=== PATIENT | male | born 1975 | race Caucasian/White ===

== ENCOUNTER 2019-04-03 07:48 | Emergency (ER) | payer SELFPAY ==
--- NOTE | 2019-04-03 08:46 | RAD ---
XR Chest Pa Lat STANDARD HISTORY: Cough, congestion, fever COMPARISON: 06/19/2014 FINDINGS: The heart size is normal. The lungs are well expanded without focal areas of consolidation, pneumothorax or pleural effusions. IMPRESSION: No radiographic evidence of acute cardiopulmonary process.
[2019-04-03] MEDS ORDERED: Ibuprofen 800 MG TAB ONE (09:24)
== END 2019-04-03 09:50 | disposition home or self-care (01) ==
LOC: ERS 07:48
DX: J06.9 Acute upper respiratory infection, unspecified (principal); Z87.891 Personal history of nicotine dependence
CPT/HCPCS: 71046; 87804

== ENCOUNTER 2019-10-01 10:22 | Observation (INO) | payer OTHER, SELFPAY ==
--- NOTE | 2019-10-01 11:26 | RAD ---
CHEST 2 VIEWS: Date: 10/01/2019 HISTORY: Cough and fever. COMPARISON: Radiograph dated 04/03/2019. FINDINGS: There are innumerable nodules throughout the lungs. No pneumothorax. No significant effusion. No acut e osseous abnormality is appreciated. IMPRESSION: Innumerable nodules throughout the lungs concerning for metastatic disease. Septic emboli is also a p ossibility. CT of the chest may be beneficial if clinically warranted. POS: [facility]
[2019-10-01] MEDS ORDERED: Iopamidol-370 76% 500 ML 1 ML ONE (11:39)
[2019-10-01] MEDS ORDERED: Ondansetron ODT 4 MG TAB ONE (11:43)
[2019-10-01 12:14] LABS: #Basophils 0.1 thou/uL (0.0-0.2); #Eosinphils 1.3 thou/uL (0.0-0.7); #Lymphocytes 1.7 thou/uL (1.20-3.40); #Monocytes 0.9 thou/uL (0.11-0.59); #Neutrophils 7.1 thou/uL (1.40-6.50); %Basophils 0.9 % (0.0-1.0); %Eosinophils 11.7 % (0.0-10.0); %Monocytes 7.9 % (0.0-10.0); %Neutrophils 64.5 % (42.0-75.0); Hemoglobin 13.8 g/dL (14.0-18.0); Mean Corpuscular HGB CONC 32.9 g/dL (32.0-36.0); Mean Corpuscular Hemoglobin 32.9 pg (27.0-31.0); Mean Platelet Volume 6.2 fL (7.4-10.4); Platelet Count 543 thou/uL (130-400); RBC Distribution Width 11.9 % (11.5-14.5)
[2019-10-01 12:45] LABS: ALT (SGPT) 35 U/L (8-55); AST (SGOT) 28 U/L (5-34); Albumin 3.8 g/dL (3.5-5.0); Alkaline Phosphatase 91 U/L (40-110); Anion Gap 14 mmol/L (10-20); BUN (Urea Nitrogen) 8 mg/dL (8.9-20.6); Bilirubin, Total 0.8 mg/dL (0.2-1.2); Calc. Creatinine Clearance 0 mL/min (70-130); Calcium 9.6 mg/dL (7.8-10.44); Carbon Dioxide 27 mmol/L (22-29); Chloride 101 mmol/L (98-107); Estimated GFR-MDRD Greater than 90; Globulin 4.5 g/dL (2.4-3.5); Glucose 106 mg/dL (70-105); Potassium 4.2 mmol/L (3.5-5.1); Protein, Total 8.3 g/dL (6.0-8.3); Sodium 138 mmol/L (136-145)
--- NOTE | 2019-10-01 13:07 | CT ---
CT CHEST WITH IV CONTRAST: Date: 10-01-2019 Provided Clinical History: Cough and fever, abnormal chest radiograph. FINDINGS: There are innumerable bilateral pulmonary nodules present diffusely. There are bilateral pleural base d masses present. There is bilateral mild pleural fluid. There is lymph node enlargement in a right p aratracheal location in the region of the thoracic inlet. At the right lung apex are several circumsc ribed oval masses, the largest of which measures approximately 3.6 cm in transverse dimension, 2.9 cm in AP dimension, and 2.7 cm in craniocaudal dimension. This may reflect a pleural based mass or enla rged lymph node. The heart, pericardium and great vessels demonstrate an unremarkable CT appearance. Calcified lymph n odes are seen involving the mediastinum and right hilar regions. The airway appears patent and of normal caliber. There is no evidence for a pneumothorax. There is a large heterogeneous enhancing solid mass involving the superior pole of the left kidney, e xtending exophytically to become inseparable from the left adrenal gland. This measures at least 9.7 x 6.2 cm in greatest transverse dimensions and at least 8.9 cm in craniocaudal dimension. There is th rombus within the left renal vein, likely tumor thrombus. There are partially visualized enlarged ret roperitoneal lymph nodes. The osseous structures demonstrate no concerning lytic or blastic lesions. There is a potential parti ally visualized mass involving the inferior aspect of the right hepatic lobe measuring at least 2.2 c m. IMPRESSION: 1. Left renal malignancy with involvement of the left adrenal gland, tumor thrombus within the left r enal vein extending into the subhepatic IVC and thoracic metastatic disease as described. 2. Bilateral pleural fluid, presumably submalignant. 3. Partially visualized right upper quadrant mass is suspected. Dedicated abdominal imaging is recomm ended on a non-emergent basis. POS: [facility]
--- NOTE | 2019-10-01 15:18 | HP ---
PRIMARY CARE PHYSICIAN: The patient does not have a primary care physician. CHIEF COMPLAINT: Cough for a week. HISTORY OF PRESENT ILLNESS: Mr. Austin is a pleasant 44-year-old gentleman, who says that he has been having a cough off and on for the last week, possibly even 2 weeks and then over the last couple of days, he started noticing a fever off and on. He says that last night he basically coughed all night long. He denies any hemoptysis though, but he says he notices it more when he is overheated. He also notes that his "body was hurting all over" and he felt tired. He also had some nausea. He also says that he has been a bit short of breath as well and as a result, he came to the ER for evaluation. In the ER, he had a CT scan of the chest done, which was noted to have a large mass in the superior pole of the left kidney. He also was noted to have a possible renal vein tumor or thrombus and also a mass in the inferior aspect of the right hepatic lobe. There are also innumerable scattered nodules throughout the lungs. Since the patient has no insurance and no primary care physician, it was felt best to go ahead and admit him to help facilitate his evaluation. The patient denies any diarrhea, however, he says he has had some weight loss, but this was intentional. He says he has been working hard to try to lose weight. He has been running and walking in order to try to do this and he denies any headache. No dizziness. No sore throat. Otherwise, no other complaints. REVIEW OF SYSTEMS: All systems were reviewed and are negative except for that mentioned in the History of Present Illness. PAST MEDICAL HISTORY: Negative. PAST SURGICAL HISTORY: He had a left foot repair and bilateral eye surgery when he was a child. ALLERGIES: NO KNOWN DRUG ALLERGIES. SOCIAL HISTORY: He is single. He has one son. He smokes about half a pack of cigarettes a day for the past 5 years and he also drinks 1 to 2 beers a day. FAMILY HISTORY: History of hypertension, diabetes, and he said his mother had lung cancer, but she was a smoker. CURRENT MEDICATIONS: None. PHYSICAL EXAMINATION: GENERAL: He is alert and oriented. He appears to be in no acute distress. VITAL SIGNS: Blood pressure was 139/90, heart rate 111, respiratory rate of 18, temperature is 98.5, and O2 saturation was 93% on room air. HEENT: Pupils are equal, round, and reactive. Extraocular muscles are intact. His sclerae are anicteric. Throat; no erythema, no exudates. NECK: No adenopathy. No bruits. LUNGS: Essentially clear to auscultation. There are occasional rhonchi. No rales. CARDIOVASCULAR: He has a normal S1 and S2. There is no S3 or S4. No murmurs, clicks, or rubs. ABDOMEN: Soft, nontender, and nondistended. Positive for bowel sounds. No rebound. No guarding. No organomegaly. EXTREMITIES: There is no clubbing or cyanosis. No edema. No joint effusions. No calf tenderness. NEUROLOGIC: Grossly nonfocal. SKIN AND INTEGUMENT: No skin changes. No rash. LABORATORY DATA: Results white blood cell count is 11, hemoglobin 13.8, hematocrit is 42.1, and platelet count was 543. Sodium 138, potassium 4.2, chloride is 101, CO2 is 27, BUN of 8, creatinine 0.79, and glucose is 106. CT scan findings again, main findings demonstrated a left mass on the superior pole of the left kidney, which was extending exophytically adrenal gland measuring 9.7 x 6.2 cm. There was osseous structures concerning for lytic or blastic lesions and numerous pulmonary nodules and bilateral pleural effusions. ASSESSMENT AND PLAN: This is a very pleasant 44-year-old gentleman, who presents with cough and some dyspnea and generalized malaise. I suspect that his findings are not related to infection, but most likely related to metastatic cancer to the lungs. He will be placed in observation. We will consult Urology to help in the evaluation. At the initial step, we will be trying to determine the best way to approach getting a tissue diagnosis, whether this be a renal biopsy or possible biopsy of one of the pleural base lesions. Otherwise, he will be treated symptomatically. 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 Job ID: [id number]
[2019-10-01] MEDS ORDERED: hydrALAZINE 20 MG/ML VIAL SLOW IVP PRN (16:05)
[2019-10-01] MEDS ORDERED: guaiFENesin/Codeine Phosphate 200 mg/20 mg 10 ml UD Cup PO PRN (16:05)
[2019-10-01] MEDS ORDERED: Ondansetron PF 4 MG/2 ML Vial IVP PRN (16:05)
[2019-10-01] MEDS ORDERED: Calcium Carbonate 500 MG ChewTAB PO PRN (16:05)
[2019-10-01] MEDS ORDERED: Acetaminophen 325 MG TAB PO PRN (16:05)
[2019-10-01] MEDS ORDERED: Ondansetron ODT 4 MG TAB PO PRN (16:05)
[2019-10-01 16:17] VITALS: BMI 32.4
[2019-10-01] MEDS: Sodium Chloride 0.9% 1,000 ML IV SCH (17:31)
[2019-10-01 18:07] LABS: PTT 31.4 SEC (22.9-36.1); Prothrombin Time 13.5 SEC (12.0-14.7)
[2019-10-01 22:17] LABS: Bacteria/HPF None Seen HPF (None Seen); RBC/HPF 0-3 HPF (0-3); Squamous Epithelial None Seen HPF (0-3); WBC/HPF 0-3 HPF (0-3)
--- NOTE | 2019-10-02 | CON ---
DATE OF CONSULTATION: 10/01/[address] Gleason with hospitalist. REASON FOR CONSULT: Left renal mass with metastatic disease. HISTORY OF PRESENT ILLNESS: Mr. 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 As it has persisted, he presented to the emergency room at encouragement of his coworkers. He also had history of fever of 102, denies productive cough. He has lost maybe about 5-10 pounds by running/walking as he is trying to lose weight. He has had generalized malaise for a couple of weeks as well. He continues to work, however, he thought that his loss of energy was due to possibility of him being ill, therefore presented to the emergency room. The patient does not have health insurance nor a primary care physician, he was seen and evaluated by ER staff. CT of the chest was done as he presents with fever, dry cough. CT demonstrated incidental large left renal mass, also multiple numerous pulmonary nodules and retroperitoneal lymphadenopathy consistent with metastatic left renal cell carcinoma, likely. He appears quite comfortable at this time, he has smoked for about five years. He was incarcerated many years ago, however, states that he has turned his life around and continues to work. He denies obstructive urinary symptoms, denies dysuria, gross hematuria, flank or abdominal pain. He denies family history of malignancy or dialysis. REVIEW OF SYSTEMS: Ten-point review of systems as above, otherwise noncontributory. PAST MEDICAL HISTORY: None. PAST SURGICAL HISTORY: Left foot repair, bilateral eye surgery when he was a child. ALLERGIES: NO KNOWN DRUG ALLERGIES. SOCIAL HISTORY: He is single, has a 19-year-old son, half a pack of cigarettes a day for about five years. Social drinker. He was incarcerated in the remote past due to assault. FAMILY HISTORY: Positive for hypertension, diabetes, mother secondary to lung cancer and she was a heavy smoker. PHYSICAL EXAMINATION: VITAL SIGNS: His vital signs are stable at 98, 96, 18, 96, 121/81. GENERAL: The patient appears to be in no acute distress. He appears comfortable and provides his own subjective history. HEENT: Grossly unremarkable, extraocular movement is intact. No significant lymphadenopathy. HEART: Regular rate. LUNGS: Clear. ABDOMEN: Soft. No rigidity. No rebound. No palpable mass. He has somewhat robust globular abdomen. There is evidence of superficial varicosities of the lateral trunk bilaterally. No evidence of hernia. : Uncircumcised. Meatus is unremarkable. Testes are descended with no evidence of intratesticular mass. There is bilateral trace hydrocele, no erythema, no induration. EXTREMITIES: No cyanosis, clubbing, or edema or calf tenderness appreciated. NEUROLOGIC: No gross focal deficits. MUSCULOSKELETAL: Symmetric movement bilaterally with no significant weakness of concern. PSYCHIATRIC: Appears to be appropriate and intact. PERTINENT LABS AND IMAGING: White count 11, hemoglobin 13, platelet 543. Creatinine is 0.7. LFTs are grossly unremarkable, with alkaline phosphatase within normal limits in the remote past in 2013. His coagulation profile was grossly unremarkable. Chest x-ray dated March 2019, is grossly unremarkable. Chest x-ray on current presentation demonstrates innumerable nodules concerning for metastatic disease, septic emboli as a differential diagnosis. Recommend CT of the chest. CT of the chest with contrast which I reviewed myself: Innumerable bilateral pulmonary nodules diffusely. Mild bilateral pleural effusion. Multiple pulmonary METS in the paratracheal region. Lesions in the right lung apex, largest measuring 3.6 cm, 2.9 cm, 2.7 cm. No evidence of pneumothorax. Large heterogeneous enhancing solid mass of the left upper pole extending exophytically, which is inseparable from the left adrenal gland, measuring 9.7 x 6.2 x 8.9 cm in craniocaudal dimension with tumor thrombus within the left vein. Per my review, this does encroach the os of the vena cava. Enlarged retroperitoneal lymph nodes. No obvious lytic lesions. There is also a liver mass measuring 2.2 cm. IMPRESSION AND PLAN: Mr. Austin is a pleasant 43-year-old male with no significant past medical history, presents with a few-week history of malaise, dry cough, workup demonstrating innumerous pulmonary nodules with large left renal mass with retroperitoneal and thoracic adenopathy consistent with metastatic disease. I recommend workup with CT of the abdomen and pelvis, hematuria protocol, bone scan. MRI of the brain would be also advised as he demonstrates diffuse metastatic disease, likely has visceral METS in the liver as well based on CT. The patient has been informed regarding differential diagnosis and imaging consistent with metastatic renal cell carcinoma. As there is evidence of tumor thrombus in the left renal vein, it is likely renal cell carcinoma. I did a conference with radiologist, Dr. Charles who was available. I prefer the patient to undergo percutaneous biopsy for tissue in his lung nodule, as his renal mass is quite vascular per my review with multiple parasitic vessels with high risk of bleeding. The patient informed regarding workup, percutaneous lung biopsy, which orders I placed in chart. N.p.o. after midnight, in hopes that Radiology could biopsy him tomorrow. Hold anticoagulation for percutaneous biopsy. Once tissue diagnosis, Medical Oncology evaluation is indicated. Job ID: [id number] [facility]TD[facility]
[2019-10-02] MEDS: Sodium Chloride 0.9% 1,000 ML IV SCH ×2 (00:10→07:15)
[2019-10-02 06:13] LABS: #Basophils 0.1 thou/uL (0.0-0.2); #Eosinphils 1.3 thou/uL (0.0-0.7); #Lymphocytes 1.3 thou/uL (1.20-3.40); #Monocytes 1.3 thou/uL (0.11-0.59); #Neutrophils 7.1 thou/uL (1.40-6.50); %Basophils 0.5 % (0.0-1.0); %Eosinophils 11.4 % (0.0-10.0); %Monocytes 11.8 % (0.0-10.0); %Neutrophils 64.3 % (42.0-75.0); Hemoglobin 11.7 g/dL (14.0-18.0); Mean Corpuscular HGB CONC 32.5 g/dL (32.0-36.0); Mean Corpuscular Hemoglobin 32.7 pg (27.0-31.0); Platelet Count 473 thou/uL (130-400); RBC Distribution Width 11.8 % (11.5-14.5); Red Blood Cell (RBC) Count 3.57 mill/uL (4.70-6.10)
[2019-10-02 06:36] LABS: Anion Gap 10 mmol/L (10-20); BUN (Urea Nitrogen) 7 mg/dL (8.9-20.6); Calc. Creatinine Clearance 168 mL/min (70-130); Calcium 8.5 mg/dL (7.8-10.44); Carbon Dioxide 27 mmol/L (22-29); Chloride 105 mmol/L (98-107); Estimated GFR-MDRD Greater than 90; Glucose 96 mg/dL (70-105); Sodium 138 mmol/L (136-145)
--- NOTE | 2019-10-02 07:48 | PRG ---
DATE OF SERVICE: 10/02/2019 SUBJECTIVE: The patient without new complaints. Denies chest pain, shortness of breath. OBJECTIVE: VITAL SIGNS: T-max of 100, T current 98.9, 92, 18, 93, 121/77. I' s and O's 800 of urine out. GENERAL: The patient is no acute distress. Heart regular rate ABDOMEN: Soft. No rigidity. No rebound. EXTREMITIES: No cyanosis, clubbing, or edema. PERTINENT LABORATORY DATA: White count 11, hemoglobin 11, platelet 473. Creatinine today is 0.76. UA demonstrates no evidence of microscopic hematuria. IMPRESSION AND PLAN: Mr. Austin is a 44-year-old male with no significant past medical history, presented with dry cough. Workup demonstrates large left renal mass, with diffuse pulmonary mets, retroperitoneal lymphadenopathy. patient hopefully will proceed with percutaneous biopsy of his lung nodule, as I prefer lung nodule to be biopsied instead of the renal mass as it demonstrates large parasitic vessels and neovascularity consistent with renal cell carcinoma. He is n.p.o. I discussed his case with one of the radiologist, Dr. Charles, as he has numerous pulmonary nodules, radiologist did inform me that he will be able to biopsy this percutaneously without significant issues. Case Management on his case as he is noninsured. Medical Oncology consult will be initiated. Await full metastatic workup. Job ID: [id number] [facility]
[2019-10-02] MEDS ORDERED: Sodium Bicarbonate 2.5 MEQ/5 ML VIAL ONE (08:30)
[2019-10-02] MEDS ORDERED: Midazolam HCl 2 mg/2 ml Vial ONE (08:59)
[2019-10-02] MEDS ORDERED: Fentanyl 100 MCG/2 ML VIAL ONE (08:59)
[2019-10-02] MEDS ORDERED: Enoxaparin Sodium 40 MG/0.4 ML SYRINGE SC SCH (09:00)
--- NOTE | 2019-10-02 09:43 | MRI ---
Exam: Brain MRI with and without contrast HISTORY: Metastatic left kidney cancer. Evaluate for brain metastases. COMPARISON: None FINDINGS: Gradient echo sequence: No hemorrhage Calvarium: Appropriate T1 marrow signal intensity Midline brain parenchyma: Unremarkable Cerebrum:No parenchymal mass, mass effect or midline shift. Brain volume is age-appropriate. Cortical scott-white matter differentiation is preserved. Minimal T2 and FLAIR white matter hyperintensities, nonspecific. No associated restricted diffusion or enhancement. Ventricles: No evidence of hydrocephalus. Sinuses and mastoid air cells: Adequate aeration Diffusion: Central arterial flow is maintained. Absent restricted diffusion. Postcontrast images: No pathologic enhancement of the brain parenchyma. IMPRESSION: 1. Nonspecific white matter hyperintensities likely due to chronic small vessel ischemic change. No a ssociated restricted diffusion or enhancement. 2. No pathologic enhancement the brain parenchyma. No intraparenchymal mass/metastases.
--- NOTE | 2019-10-02 11:20 | CT ---
EXAM: CT Abd Perc peritoneal Bx PROVIDED CLINICAL HISTORY: Large necrotic left renal mass with multiple metastatic pulmonary nodules and lobulated mass in the r ight upper quadrant. Biopsy was requested. COMPARISON: CT abdomen and pelvis on 10/02/[address] thorax on 10/01/2019 TECHNIQUE: The procedure including the risks and complications were explained to the patient, and informed conse nt was obtained. The patient was placed on the CT scan table in the supine position. Limited noncontrasted CT scan was obtained through the upper abdomen with grid localizer in place overlying t he right upper quadrant. An area overlying the right upper quadrant mass was marked, and the area was meticulously prepped and draped in the usual sterile fashion. The skin and subcutaneous tissues were infiltrated with buffered 1% lidocaine for local anesthesia. A small skin incision was made. A 17-gauge guide needle was advanced followed by axial noncontrasted CT images. This was repeated until the tip of the needle was just within the peripheral aspect of the right upper quadrant mass. A total of [id number] core needle biopsy specimens were obtained utilizing coaxial technique. Specimens were evaluated by the pathologist, and adequate tissue was not ed on provided biopsy specimens. No additional biopsy specimens were requested. The needle was removed, and hemostasis was achieved with direct pressure. Follow-up CT scan examinati on demonstrates no free fluid in the right upper quadrant or findings to suggest a hematoma. Patient remained stable during the procedure as well as immediately postprocedure. Patient tolerated the procedure well and without immediate complication. IMPRESSION: Technically successful CT-guided percutaneous biopsy of a mass in the anterior right upper quadrant o f the abdomen. Final pathology result is pending.
[2019-10-02] MEDS ORDERED: Iopamidol 370 76% 100 ML VIAL ONE (11:44)
[2019-10-02] MEDS ORDERED: Magnevist 469MG/ML 20 ML VIAL ONE (11:46)
--- NOTE | 2019-10-02 12:11 | CT ---
CT ABDOMEN AND PELVIS WITH AND WITHOUT IV CONTRAST: Date: 10/02/2019 Postcontrast images were obtained in portal venous phase and delayed venous phase following urographi c protocol. INDICATION: Left renal mass. Correlation made to recent CT chest dated 10/01/2019 which described pulmonary metas tasis, small bilateral effusions, and a left renal mass consistent with neoplasm. FINDINGS: Images through the lung bases again show numerous pulmonary metastatic masses. There are small bilate ral pleural effusions which appear to have slightly increased in size when compared to the prior stud y. Bibasilar lung atelectasis. On the noncontrast study, there is contrast secretion into the collecting structures of both kidneys from the contrast study of 10/01/2019. There is opacification of the upper collecting structures and ureters and there is contrast within the bladder which is mildly distended. On the postcontrast exam, there is a large peripherally enhancing mass involving the superior left ki dney which measures 10.0 cm AP dimension x 7.5 cm width in the axial plane. This involves the upper p ole of the left kidney. There is mass involving the left adrenal gland consistent with left adrenal involvement. The right ad renal gland is normal. Right kidney is unremarkable. There is an exophytic cyst from the posterior right renal cortex which measures 3.0 cm. Ureters are unremarkable. Urinary bladder is unremarkable. The liver is homogeneous. There is a small focal hypodensity along the lateral margin of the right lo be of the liver measuring in the 6.0 mm range, most likely representing a tiny cyst. Spleen and pancr eas are unremarkable. Stomach and duodenum are unremarkable. There is a peripherally enhancing mass in the right upper quadrant which was partially imaged on the prior study. This mass measures 3.5 cm diameter and it abuts the wall of the right colon near the hep atic flexure. It could potentially represent an exophytic mass from the right colon. Other considerat ions include a mesenteric metastatic deposit. The small bowel loops are normal. Colon is otherwise unremarkable. Aorta normal caliber. There are retroperitoneal lymph nodes on the left just posterior to the left renal vein which measure up to 2.3 cm width in the axial plane. There are numerous other periaortic nodes seen in the retrope ritoneum at this level. There is filling defect in the left renal vein which was described on the prior exam consistent with tumor thrombus extending into the left renal vein. This does extend to and into the inferior vena cav a at the juncture of the left renal vein. Images through the pelvis are unremarkable. The osseous structures are unremarkable. IMPRESSION: 1. Large peripherally enhancing mass with central necrosis involving the superior pole of the left k idney consistent with neoplasm. There is associated periaortic and retroperitoneal adenopathy at the level of the left renal vein. There is tumor thrombus extending into the left renal vein and into the IVC. 2. There is a peripherally enhancing mass in the right upper quadrant inferior to the liver margin a nd abutting the wall of the upper ascending colon near the hepatic flexure with dimensions given abov e. This may represent a mesenteric metastatic deposit. I cannot exclude origin from the wall of the r ight colon. 3. There is involvement of the left adrenal gland as noted above. 4. Bilateral pleural effusions have increased slightly since the prior exam. POS: [facility]
--- NOTE | 2019-10-02 13:57 | CON ---
DATE OF CONSULTATION: REASON FOR CONSULT: Metastatic disease. HISTORY OF PRESENT ILLNESS: Mr. Austin is a 44-year-old gentleman with no medical history who presented to the emergency room with several weeks of cough on and on. He denies any fever or unintentional weight loss. He was having occasional fatigue. States he works 60 hours a week. In the emergency room, he underwent a chest x-ray, which showed innumerable pulmonary nodules throughout the lungs. Then underwent a chest CT confirming the innumerable bilateral pulmonary nodules. There were bilateral pleural-based masses, bilateral mild pleural fluid, paratracheal lymphadenopathy. The largest mass in the right lung apex measured 3.6 cm. There was a large heterogeneous solid mass involving the superior pole of the left kidney extending exophytically and inseparable from the adrenal gland. There was a possible right liver lesion measuring 2.2 cm. He was admitted for further workup. He does deny any hematuria. No urinary difficulties. Dr. Rodgers was consulted and ordered a CT-guided biopsy, which he underwent this morning. He has had a brain MRI, which was negative for metastatic disease. He has a bone scan pending. The patient has a 6 pack-year history of smoking. He drinks a 6 pack of beer daily with more on the weekend. He states he runs 2 miles daily and has lost a couple of pounds due to exercise. He states he feels quite well. Denies any night sweats or chills. PAST MEDICAL HISTORY: None. PAST SURGICAL HISTORY: Foot repair. ALLERGIES: NO KNOWN DRUG ALLERGIES. HOME MEDICATIONS: None. SOCIAL HISTORY: Single, 6 pack-year history of smoking. Everyday drinker. FAMILY HISTORY: Mother from lung cancer due to smoking. No history of lymphoma or renal cell carcinoma. REVIEW OF SYSTEMS: A 10-point review of systems is negative except for noted in HPI. PHYSICAL EXAMINATION: VITAL SIGNS: Temperature is 98.7, pulse is 88, respiratory rate 16, blood pressure is 134/77. He is 98% on room air. GENERAL: This is a well-developed, well-nourished male, in no acute distress. HEENT: Normocephalic, atraumatic. Pupils are equal and reactive to light. NECK: Supple. CV: Regular rate and rhythm. LUNGS: Clear. ABDOMEN: Soft and nontender. EXTREMITIES: There is no clubbing or cyanosis. SKIN: No rash. LYMPHATIC: There is no palpable cervical or axillary lymphadenopathy. NEUROLOGIC: Nonfocal. PERTINENT LABS AND X-RAYS: Current WBCs are 11, hemoglobin 11.7, hematocrit 35.9, platelet count 473,000, 64% neutrophils, 10% lymphocytes, 11% monocytes. PT is 13.5, INR is 1, PTT is 31.4. Sodium is 138, potassium 4.0, chloride 105, CO2 is 27, BUN is 7, creatinine 0.71, lactic acid is 1.5, calcium 8.5, bilirubin 0.8, AST is 28, ALT is 35, alkaline phosphatase is 91, serum total protein is 8.3, albumin 3.8, globulin 4.5. Radiology, per HPI. ASSESSMENT: Large left renal mass with metastatic disease in the lung and possible liver. DISCUSSION: The patient's biopsy has been performed today. Pathology is currently pending and likely not to return until Monday afternoon or Monday morning. Differential diagnosis includes renal cell carcinoma and possibly lymphoma. This has been discussed with the patient. He understands that results will not be back for several days. He is anxious to go home. I have made him an appointment to see Dr. Morris next week in our clinic. Clinical information was provided. Recommend financial counseling prior to departure as he is going to need assistance with treatment. All his questions were answered to the best of the ability at this time and we will follow up with him in the outpatient setting. Thank you for the consult. Job ID: [id number]
--- NOTE | 2019-10-02 15:31 | PDOC.HOSPP ---
- Subjective Encounter Date: 10/02/19 Encounter Time: 15:30 Subjective: Mr. Austin was seen today in follow-up of metastatic cancer. he does not have any complaints. - Objective Vital Signs & Weight: Vital Signs (12 hours) Temp Pulse Resp BP Pulse Ox 10/02/19 12:00 98.7 F 10/02/19 11:20 98.7 F 88 16 134/77 98 10/02/19 08:00 98.7 F 95 91 L 10/02/19 07:38 98.7 F 95 18 123/78 91 L 10/02/19 04:00 98.9 F 92 18 121/77 93 L Weight Weight 195 lb I&O: 10/01/19 10/02/19 10/03/19 06:59 06:59 06:59 Intake Total 1400 240 Output Total 800 Balance 600 240 Result Diagrams: 10/02/19 05:57 10/02/19 05:57 Hospitalist ROS - Medication Medications: Active Medications Generic Name Dose Route Start Last Admin Trade Name Freq PRN Reason Stop Dose Admin Sodium Chloride 1,000 mls @ 125 mls/hr 10/01/19 17:15 10/02/19 07:15 Normal Saline 0.9% IV 1,000 mls .Q8H CJ Administration - Exam Eye: PERRL Heart: RRR, no murmur, no gallops, no rubs, normal peripheral pulses Respiratory: CTAB, no wheezes, no rales, no ronchi Gastrointestinal: soft, non-tender, non-distended, normal bowel sounds, no palpable masses, no hepatomegaly, no splenomegaly Extremities: no cyanosis Hosp A/P (1) Metastatic cancer Code(s): C79.9 - SECONDARY MALIGNANT NEOPLASM OF UNSPECIFIED SITE Status: Acute (2) Left renal mass Code(s): N28.89 - OTHER SPECIFIED DISORDERS OF KIDNEY AND URETER Status: Acute - Plan * Renal mass, and metastatic cancer * MRI of the brain was noted- negative * Bpne scan is pending * Joselyn would like to go home, while he waits on his test results. This is reasonable * Once he visits with Financial Department, or has their contact infor, he can be discharged home.
[2019-10-02 16:09] VITALS: BP 121/74; TEMP 99.6
--- NOTE | 2019-10-02 16:37 | NM ---
WHOLE BODY BONE SCAN: 10/02/19 HISTORY: Renal cell carcinoma with pulmonary mets. RADIOPHARMACEUTICAL: 15 millicuries technetium 99m - MDP injected intravenously. COMPARISON: None. CORRELATION: CT abdomen and pelvis from same date and CT chest from previous day. FINDINGS: Increased uptake in the shoulders, sternoclavicular joints are consistent with degenerative changes. No other abnormalities of tracer localization is seen to suggest metastatic disease. Tracer excretion through the kidneys is within normal limits. IMPRESSION: No scintigraphic evidence of osseous metastatic disease. POS: JOSE CARLOS
--- NOTE | 2019-10-03 01:32 | DIS ---
DATE OF ADMISSION: 10/01/2019 DATE OF DISCHARGE: 10/02/2019 PRIMARY CARE PHYSICIAN: The patient currently does not have a primary care physician. DISCHARGE DISPOSITION: Home. DISCHARGE DIAGNOSES: 1. Renal mass. 2. Metastatic cancer of unknown cell type. DISCHARGE MEDICATIONS: None. CODE STATUS: Full code. ALLERGIES: NO KNOWN DRUG ALLERGIES. HOSPITAL COURSE: Mr. Austin is a pleasant 44-year-old gentleman, who presented to the emergency room as he was concerned about COVID-19. He has been having a cough off and on for the last week, but no fever. He noticed that his body was "hurting all over." As a result, he came to the ER and when he was evaluated, he was found to have a large left renal mass and CT scan of the chest showed innumerous lesions within the lungs, which appear to be metastatic disease. For this reason, Urology was consulted because it appears that the lesion was starting from the kidney as this had the largest solitary lesion. It was recommended that one of the pleural lesions be biopsied however due to concern that the renal lesion appeared extremely vascular and had a potentially high risk of bleeding. The patient had a CT-guided biopsy of the lung mass in the lung. He tolerated the procedure well. He was seen by Dr. Rodgers, who recommended getting an MRI of the brain as well as a bone scan and CT scan of the abdomen for staging. MRI of the brain, results were back prior to discharge and was negative. The bone scan was pending as well as the pathology. The patient wished to go home and this seems reasonable, and he will follow up with the results of the biopsy with Oncology. He was seen by Yeny Macias and she gave him an appointment for October 09 and at that time based on the pathology findings, further recommendations will be offered. Job ID: [id number]
--- NOTE | 2019-10-09 13:57 | CT ---
EXAM: CT Abd Perc peritoneal Bx PROVIDED CLINICAL HISTORY: Large necrotic left renal mass with multiple metastatic pulmonary nodules and lobulated mass in the r ight upper quadrant. Biopsy was requested. COMPARISON: CT abdomen and pelvis on 10/02/[address] thorax on 10/01/2019 TECHNIQUE: The procedure including the risks and complications were explained to the patient, and informed conse nt was obtained. The patient was placed on the CT scan table in the supine position. Limited noncontrasted CT scan was obtained through the upper abdomen with grid localizer in place overlying t he right upper quadrant. An area overlying the right upper quadrant mass was marked, and the area was meticulously prepped and draped in the usual sterile fashion. The skin and subcutaneous tissues were infiltrated with buffered 1% lidocaine for local anesthesia. A small skin incision was made. A 17-gauge guide needle was advanced followed by axial noncontrasted CT images. This was repeated until the tip of the needle was just within the peripheral aspect of the right upper quadrant mass. A total of [id number] core needle biopsy specimens were obtained utilizing coaxial technique. Specimens were evaluated by the pathologist, and adequate tissue was not ed on provided biopsy specimens. No additional biopsy specimens were requested. The needle was removed, and hemostasis was achieved with direct pressure. Follow-up CT scan examinati on demonstrates no free fluid in the right upper quadrant or findings to suggest a hematoma. Patient remained stable during the procedure as well as immediately postprocedure. Patient tolerated the procedure well and without immediate complication. IMPRESSION: Technically successful CT-guided percutaneous biopsy of a mass in the anterior right upper quadrant o f the abdomen. Final pathology result is pending. Transcribed Date/Time: 10/09/2019 1:56 PM
== END 2019-10-02 17:42 | disposition home or self-care (01) ==
LOC: ERS 10:22 → T4-B 14:06
PROVIDERS: ADMIT Internal Medicine; ATTEND Internal Medicine
PROC: 0WBF3ZX Excision of Abdominal Wall, Percutaneous Approach, Diagnostic (ICD-10-PCS; principal; 2019-10-02)
DX: C64.2 Malignant neoplasm of left kidney, except renal pelvis (principal); F17.210 Nicotine dependence, cigarettes, uncomplicated
CPT/HCPCS: 36415; 49180; 70553; 71046; 71260; 74178; 77012; 78306; 80048; 80053; 81015; 83605; 85025; 85610; 85730; 87040; 87086; 88307; 88333; 88334; 88341; 88342; 96360; 96361; A9503; A9579; G0378; J2250; J3010; Q0162; Q9967

== ENCOUNTER 2019-10-13 17:55 | Inpatient (IN) | payer OTHER ==
[~2019-10-13 17:55] MED LIST: PROPOFOL 200 MG/20 ML VIAL ONE; Rocuronium Bromide 10 MG/ML (10ML VIAL) ONE
[2019-10-13 18:26] LABS: #Basophils 0.1 thou/uL (0.0-0.2); #Eosinphils 2.3 thou/uL (0.0-0.7); #Lymphocytes 3.6 thou/uL (1.20-3.40); #Monocytes 1.5 thou/uL (0.11-0.59); #Neutrophils 11.2 thou/uL (1.40-6.50); %Basophils 0.6 % (0.0-1.0); %Lymphocytes 19.4 % (21.0-51.0); %Monocytes 7.8 % (0.0-10.0); %Neutrophils 60.2 % (42.0-75.0); Hemoglobin 11.3 g/dL (14.0-18.0); Mean Corpuscular HGB CONC 32.6 g/dL (32.0-36.0); Mean Corpuscular Volume 98.3 fL (78.0-98.0); Mean Platelet Volume 6.4 fL (7.4-10.4); Platelet Count 615 thou/uL (130-400); RBC Distribution Width 12.6 % (11.5-14.5); Red Blood Cell (RBC) Count 3.54 mill/uL (4.70-6.10); White Blood Cell (WBC) Count 18.7 thou/uL (4.8-10.8)
--- NOTE | 2019-10-13 18:38 | RAD ---
Exam: Chest one view HISTORY:Dyspnea Comparison: 10/01/2019 FINDINGS: Cardiac silhouette:Grossly stable cardiac silhouette Aorta: Unremarkable Pulmonary vessels: Normal Costophrenic angles: Interval development of a large right-sided pleural effusion with a loculated co mponent near the right lung apex. LUNGS: Redemonstration of multiple lung parenchymal nodules. Pneumothorax: None Osseous abnormalities: None IMPRESSION: 1. Redemonstration multiple lung parenchymal nodules 2. Interval development of a large right-sided pleural effusion with loculation in the right lung ape x.
[2019-10-13 18:45] LABS: ALT (SGPT) 27 U/L (8-55); AST (SGOT) 22 U/L (5-34); Albumin 3.2 g/dL (3.5-5.0); Alkaline Phosphatase 101 U/L (40-110); Anion Gap 16 mmol/L (10-20); BUN (Urea Nitrogen) 8 mg/dL (8.9-20.6); Bilirubin, Total 0.4 mg/dL (0.2-1.2); Calc. Creatinine Clearance 0 mL/min (70-130); Calcium 9.2 mg/dL (7.8-10.44); Carbon Dioxide 23 mmol/L (22-29); Chloride 100 mmol/L (98-107); Estimated GFR-MDRD Greater than 90; Globulin 3.8 g/dL (2.4-3.5); Glucose 94 mg/dL (70-105); Potassium 4.6 mmol/L (3.5-5.1); Sodium 134 mmol/L (136-145)
[2019-10-13] MEDS ORDERED: Azithromycin 500 MG VIAL ONE (19:10)
[2019-10-13] MEDS ORDERED: cefTRIAXone\\ROCEPHIN 2 GM VIAL ONE (19:10)
[2019-10-13] MEDS ORDERED: Lorazepam 1 MG TAB ONE (19:36)
[2019-10-13] MEDS ORDERED: Acetaminophen 325 MG TAB PO PRN (21:17)
[2019-10-13] MEDS ORDERED: Ondansetron PF 4 MG/2 ML Vial IVP PRN (21:17)
[2019-10-13] MEDS ORDERED: Ondansetron ODT 4 MG TAB SL PRN (21:17)
[2019-10-13 21:19] LABS: Lactic Acid 1.5 mmol/L (0.5-2.2)
[2019-10-13] MEDS ORDERED: CCU Electrolyte Replacement 1 EACH IVPB ONE (21:51)
[2019-10-13] MEDS ORDERED: Benzonatate 100 MG CAP PO PRN (21:54)
[2019-10-13] MEDS ORDERED: CCU ELECTROLYTE REPLACEMENT PROTOCOL FS PRN (21:59)
[2019-10-13] MEDS ORDERED: PHOS-NAK 1 PKT PACK PO PRN ×2 (21:59)
[2019-10-13] MEDS ORDERED: Potassium Phosphate 12 MMOL in Sodium Chloride 0.9% 250 ML 250 ML IV PRN (21:59)
[2019-10-13] MEDS ORDERED: Potassium Chloride 40 MEQ in Premix Bag 1 BAG IVPB PRN (21:59)
[2019-10-13] MEDS ORDERED: Potassium Phosphate 15 MMOL in Sodium Chloride 0.9% 250 ML 250 ML IV PRN (21:59)
[2019-10-13] MEDS ORDERED: Magnesium 2 GM/50 ML 2 GM in Premix Bag 1 BAG IVPB PRN (21:59)
[2019-10-13] MEDS ORDERED: Magnesium Oxide 400 MG TAB PO PRN ×2 (21:59)
[2019-10-13] MEDS ORDERED: Potassium Chloride 40 MEQ in Sodium Chloride 0.9% 250 ML 250 ML IVPB PRN (21:59)
[2019-10-13] MEDS ORDERED: Potassium Phosphate 9 MMOL in Sodium Chloride 0.9% 100 ML IVPB PRN (21:59)
[2019-10-13] MEDS ORDERED: Potassium Chloride 20 MEQ TAB PO PRN (21:59)
[2019-10-13] MEDS ORDERED: Sodium Chloride 0.9% 1,000 ML IV SCH (22:30)
[2019-10-13] MEDS: Piperacillin/Tazobactam 3.375 GM in Sodium Chloride 0.9% 100 ML IVPB SCH (22:36)
[2019-10-13] MEDS: ALPRAZolam 0.5 MG TAB PO PRN (22:37)
--- NOTE | 2019-10-14 01:03 | HP ---
CHIEF COMPLAINT: Shortness of breath. HISTORY OF PRESENT ILLNESS: The patient is a 44-year-old male, who was recently diagnosed with renal mass and was found to have metastatic cancer. Per his biopsy results, the patient was found to have poorly differentiated malignancy consistent with metastatic renal cell carcinoma. The patient states that for the past 3-4 days, he has been having worsening shortness of breath. He states that he has not been able to move around very much without getting very short of breath. He denies any fevers; however, states that he did have some chills today. He denies any chest pain or chest pressure. He states that he has been sleeping upright because he gets really short of breath. He also has been having an ongoing cough for weeks. Sometimes he does have some clear sputum production, sometimes he does not. The patient denies any sick contacts. The patient also was recently tested for COVID earlier this month and was negative. PAST MEDICAL HISTORY: Negative. PAST SURGICAL HISTORY: He has had a left foot repair and bilateral eye surgery when he was child and recent lung biopsy. ALLERGIES: NO KNOWN DRUG ALLERGIES. MEDICATIONS: He takes none. SOCIAL HISTORY: He stated initially that he lives alone. However, I found out that he does have a and he does smoke. He used to smoke a pack a day every 2 or 3 days; however, has quit smoking since this month. He used to drink 6-12 packs of beer on a daily basis. However, he has stopped that also since earlier this month. Denies any drug use to me. He is a full code. FAMILY HISTORY: Hypertension, diabetes, and his mother had lung cancer, but she was a smoker. REVIEW OF SYSTEMS: All negative except for the ones mentioned above in the HPI. PHYSICAL EXAMINATION: VITAL SIGNS: Are as of the following; temperature 99.8, oxygen saturation 93% on 6 L, heart rate of 118, blood pressure 138/72. GENERAL: He is awake, alert, and oriented x3, appears in some minimal distress. CV: S1, S2 present. Tachycardic. LUNGS: He has diminished breath sounds to right lower lung bases completely; however, no rhonchi or wheezes noted. ABDOMEN: Soft and nontender. Bowel sounds are present x2. EXTREMITIES: No edema. Pedal pulses are present x2. NEUROVASCULAR: No focal deficits noted. SKIN: No cuts, lesions, or bruises noted. LABORATORY RESULTS: Are as of the following; he has a white count of 18.7, hemoglobin of 11.3, hematocrit of 34.8, his platelets of 615. He has no bands. He does have neutrophils. Chemistry; sodium of 134, potassium of 4.6, BUN of 8, creatinine of 0.75. His lactic initially was 2.4, albumin is 3.2. His troponin was negative. His BNP was normal. He did have a chest x-ray done, which indicated a very large pleural effusion on the right, which is loculated and multiple lung parenchymal nodules. ASSESSMENT AND PLAN: The patient is a very pleasant, unfortunate 44-year-old male, who initially presents to the hospital with complaints of shortness of breath. 1. Acute respiratory distress with hypoxia. The patient's O2 saturations on room air was 86% in the ER notes. He is currently on 6 L. He has been holding up 93% to 94%. He is still very tachypneic. He has a significant right-sided pleural effusion. We will get Pulmonary to see if he would do a possible thoracentesis for this patient in the morning. The patient states that he has not started on his chemotherapy medications. He states that he was supposed to be on some trial medication once his insurance gets approved. We will also start him on some broad-spectrum antibiotics given his leukocytosis, this could have a postobstructive pneumonia. I will start him on some Zosyn which will cover anaerobic coverage. I will also may be consider Levaquin for an atypical coverage also. I do not think this patient requires any MRSA coverage currently. We will also start him on some gentle hydration. He is little tachycardic. 2. Lactic acidosis. This could be secondary to possible obstructive pneumonia. We will continue broad-spectrum antibiotics. He did receive some fluids and his lactic acid is improving. 3. Sepsis, possible postobstructive pneumonia. We will continue his broad-spectrum antibiotics. Also possible thoracentesis in the morning. He will require the fluid for cytology to be sent off. The patient is also getting ruled out again for COVID. He was tested in the ER for that. 4. Deep venous thrombosis prophylaxis. We will put the patient on subcu Lovenox. Job ID: [id number]
[2019-10-14] MEDS: Lorazepam 2 MG/ML VIAL SLOW IVP PRN ×2 (01:25→07:15)
[2019-10-14 04:29] LABS: ALT (SGPT) 22 U/L (8-55); AST (SGOT) 15 U/L (5-34); Albumin 3.1 g/dL (3.5-5.0); Alkaline Phosphatase 94 U/L (40-110); Anion Gap 15 mmol/L (10-20); BUN (Urea Nitrogen) 7 mg/dL (8.9-20.6); Bilirubin, Total 0.5 mg/dL (0.2-1.2); Calc. Creatinine Clearance 164 mL/min (70-130); Calcium 8.6 mg/dL (7.8-10.44); Carbon Dioxide 22 mmol/L (22-29); Chloride 100 mmol/L (98-107); Estimated GFR-MDRD Greater than 90; Globulin 3.6 g/dL (2.4-3.5); Glucose 108 mg/dL (70-105); Potassium 4.3 mmol/L (3.5-5.1); Protein, Total 6.7 g/dL (6.0-8.3); Sodium 133 mmol/L (136-145)
[2019-10-14 05:00] LABS: Band 18 % (5-11); Eosinophils 8 % (0-10); Hemoglobin 10.9 g/dL (14.0-18.0); Lymphocytes 18 % (21-51); MDiff Complete? YES; Mean Corpuscular HGB CONC 30.2 g/dL (32.0-36.0); Mean Corpuscular Hemoglobin 30.2 pg (27.0-31.0); Mean Platelet Volume 6.3 fL (7.4-10.4); Monocytes 3 % (0-10); Neutrophil 53 % (42-75); Platelet Count 604 thou/uL (130-400); RBC Distribution Width 12.8 % (11.5-14.5); Red Blood Cell (RBC) Count 3.59 mill/uL (4.70-6.10); White Blood Cell (WBC) Count 20.9 thou/uL (4.8-10.8)
[2019-10-14] MEDS: Piperacillin/Tazobactam 3.375 GM in Sodium Chloride 0.9% 100 ML IVPB SCH ×3 (05:23→17:37)
[2019-10-14] MEDS: ALPRAZolam 0.5 MG TAB PO PRN (07:15)
[2019-10-14] MEDS: Enoxaparin Sodium 40 MG/0.4 ML SYRINGE SC SCH (07:32)
[2019-10-14] MEDS ORDERED: Morphine 4 MG/ML VIAL ONE (08:34)
[2019-10-14 08:40] LABS: Analyzer IN Cardio ER; CO2 Tension 44.7 mmHg (35.0-45.0); Calcium, Ionized 1.14 mmol/L (1.12-1.30); Carboxyhemoglobin (COHb) 0.2 gm% (0.0-3.0); Hemoglobin (Hb) 11.6 g/dL (14.0-18.0); Potassium - ABG Lab 4.16 mmol/L (3.70-5.30); pH, Arterial 7.33 (7.35-7.45)
[2019-10-14 08:47] LABS: ALV-art Gradient 236.625 (0-20); Puncture Site L.R.
[2019-10-14] MEDS ORDERED: Morphine 2 MG/ML SYRINGE SLOW IVP SCH (09:00)
--- NOTE | 2019-10-14 09:02 | RAD ---
Exam: Chest one view HISTORY:Shortness of breath. Lung cancer. Dyspnea. Comparison: 10/13/2019 FINDINGS: Cardiac silhouette: Normal Aorta: Unremarkable Pulmonary vessels: Normal Costophrenic angles: Worsening right-sided pleural effusion. LUNGS: Stable lung masses. Pneumothorax: None Osseous abnormalities: None IMPRESSION: Worsening right-sided pleural effusion.
--- NOTE | 2019-10-14 09:08 | PDOC.HOSPP ---
- Subjective Encounter Date: 10/14/19 Encounter Time: 08:00 Subjective: overnight, was on 6L NC and satting low 90s but this morning, increasingly tachypnic and hypoxemic, transitioned to ventimask. Pending evaluation by [facility] - Objective Vital Signs & Weight: Vital Signs (12 hours) Temp Pulse Ox 10/14/19 08:00 95 10/14/19 07:00 98.0 F 10/14/19 04:00 97.5 F L 10/14/19 00:55 93 L 10/14/19 00:00 98.7 F 96 10/13/19 22:00 99.8 F H 10/13/19 21:46 93 L Weight Weight 198 lb 10.184 oz Most Recent Monitor Data Heart Rate from ECG 134 NIBP 136/99 NIBP BP-Mean 111 Respiration from ECG 21 SpO2 95 I&O: 10/13/19 10/14/19 10/15/19 06:59 06:59 06:59 Intake Total 800 80 Output Total 550 Balance 250 80 Result Diagrams: 10/14/19 03:34 10/14/19 03:34 Hospitalist ROS - Review of Systems All other systems reviewed; all pertinent +/- noted in HPI/Subj (could not assess because patient is tachypnic and on ventimask, in distress due to dyspnea ) - Medication Medications: Active Medications Generic Name Dose Route Start Last Admin Trade Name Freq PRN Reason Stop Dose Admin Alprazolam 0.5 mg 10/13/19 22:24 10/14/19 07:15 Xanax PO 0.5 mg BIDPRN PRN Administration Anxiety Enoxaparin Sodium 40 mg 10/14/19 09:00 10/14/19 07:32 Lovenox SC 40 mg 0900 CJ Administration Piperacillin Sod/Tazobactam 100 mls @ 200 mls/hr 10/13/19 23:00 10/14/19 05: 23 Sod 3.375 gm/ Sodium Chloride IVPB 100 mls 0500,1100,1700,2300 CJ Administration Sodium Chloride 1,000 mls @ 50 mls/hr 10/13/19 22:30 10/13/19 22:36 Normal Saline 0.9% IV 10/14/19 18:29 1,000 mls .Q20H CJ Administration Lorazepam 1 mg 10/13/19 22:24 10/14/19 07:15 Ativan SLOW IVP 1 mg Q6H PRN Administration Anxiety/Agitation - Exam General Appearance: awake alert General - other findings: in distress due to dyspnea Eye: PERRL, anicteric sclera ENT: normocephalic atraumatic, moist mucosa Neck: no JVD Heart: no murmur, no gallops, no rubs Heart - other findings: tachcardic in 130s, sinus per telemetry Respiratory - other findings: right lung sounds significantly reduced throughout ; left lung sounds CTA Gastrointestinal: soft, non-tender, non-distended, normal bowel sounds Psychiatric: A&O x 3 Hosp A/P - Plan #right pleural effusion -CXR reported as large R pleural effusion with loculation in apex; CXR shows worsening effusion -significant interval change compared to effusions seen on CT abd (10/01) -WBC elevated absolute count of granulocytes and lymphocytes; bandemia -etiology metastatic RCC vs. pneumonia -DURING LAST ADMISSION, INITIALLY SUSPECTED TO HAVE COVID BUT EVENTUALLY NOT CHECKED PER HOSPITALIST WHO CARED FOR PATIENT DURING LAST ADMISSION -Currently COVID R/O -will benefit from therapeutic and diagnostic thoracentesis; PCCM notified by nurses and pending evaluation -continue zosyn pending further workup #RCC with metasteses to lung, possibly liver -multiple b/l pulmonary nodules on CXR -oncology following as outpatient
[2019-10-14 10:29] LABS: Fluid, pH - Pleural Fld 7.44 (7.60 - 7.66)
[2019-10-14 11:13] LABS: Pleural Fluid, Protein 3.9 g/dL
[2019-10-14 11:27] LABS: RBC Count-Automated (BF) 34588 /cumm; WBC/Nucleated-Auto (BF) 770 uL
[2019-10-14 11:54] LABS: Body Fluid Source Thoracentesis Fluid
[2019-10-14 11:55] LABS: BF Color Pink; Clarity Cloudy/Turbid (Clear); Tube # EDTA
[2019-10-14 11:58] LABS: BF Segmented Neutrophils 13 %; Cell Count Non Hematic 59 %; Eosinophils 4 %; Lymphocytes 24 %
--- NOTE | 2019-10-14 18:40 | CON ---
DATE OF CONSULTATION: REASON FOR CONSULTATION: Metastatic renal cell carcinoma. HISTORY OF PRESENT ILLNESS: Mr. Austin is a pleasant 44-year-old male who was diagnosed with metastatic renal cell carcinoma 2 weeks ago. He initially was seen in the hospital here with a several-week history of cough, fatigue. CT of the chest showed innumerable bilateral pulmonary nodules at the right lung apex, largest measuring 3.6 cm. The superior pole of the left kidney mass measured 9.7 x 6.2 cm. He had tumor thrombus of the left renal vein. There was enlarged retroperitoneal lymph node. There were liver lesions and small bilateral pleural effusions. Bone scan and MRI of the brain were negative. Biopsy of the right upper quadrant abdominal mass showed poorly differentiated malignancy, consistent with metastatic renal cell carcinoma. He was seen by Dr. Morris on 10/09. As he has no insurance, he was working on financial assistance. Dr. Morris recommended Yervoy and Opdivo. We are trying to obtain medication from [facility]. Over the past several days, he began to have worsening shortness of breath and presented to the emergency room for evaluation. A chest x-ray showed interval development of the large right-sided pleural effusion with loculation in the right lung apex. He was admitted and placed on COVID restrictions. The test has returned negative today. Dr. Barrientos has seen the patient and performed a thoracentesis earlier this morning. Cytology is currently pending. He states he is breathing much better. PAST MEDICAL HISTORY: Newly diagnosed metastatic renal cell carcinoma. PAST SURGICAL HISTORY: Recent biopsy. ALLERGIES: NO KNOWN DRUG ALLERGIES. HOME MEDICATIONS: None. FAMILY HISTORY: Mom had lung cancer from smoking. SOCIAL HISTORY: , one child, lives alone. Current everyday smoker and everyday drinker, although has stopped both since diagnosis. REVIEW OF SYSTEMS: A 10-point review of systems is negative except for noted in HPI. PHYSICAL EXAMINATION: VITAL SIGNS: Temperature 98.1, pulse is 114, respiratory rate is 19, BP is 132/ 85, and he is 93% on 4 L. GENERAL: Well-developed well-nourished male, in no acute distress. HEENT: Normocephalic and atraumatic. Pupils are equal and reactive to light. NECK: Supple. CV: Tachycardia. LUNGS: Clear anterior. ABDOMEN: Slightly distended and soft. Bowel sounds are positive. EXTREMITIES: No clubbing or cyanosis. SKIN: No rash. HEMATOLOGIC: No petechiae or purpura. NEUROLOGIC: Nonfocal. PERTINENT LABORATORY DATA AND X-RAYS: Current WBCs 20.9, hemoglobin 10.9, hematocrit 35.9, and platelet count is 604,000. He has 53% neutrophils, 18% bands, and 18% lymphocytes. Sodium is 133, potassium 4.3, chloride 100, CO2 is 22, BUN is 7, creatinine 0.74, lactic acid 1.5, and calcium 8.6. Bilirubin 0.5, AST is 15 , ALT is 22, and alkaline phosphatase is 94. Serum total protein is 6.4, albumin 3.1 , and globulin 3.6. COVID is negative. Radiology per HPI. ASSESSMENT: 1. Newly diagnosed renal cell carcinoma. 2. New large right pleural effusions status post thoracentesis. DISCUSSION: The patient states his breathing has dramatically improved since his thoracentesis. Cytology has been sent and is currently pending. The patient is resting comfortably in the IMCU. The plan is to continue to try to acquire Opdivo and Yervoy immunotherapy from the [facility] for this gentleman to begin treatment. Case has been discussed with Dr. Morris. If his pleural effusion reaccumulates quickly, he may need a PleurX catheter placement. Thank you for the consult. We will follow along with his hospitalization. Job ID: [id number] [facility]
--- NOTE | 2019-10-14 18:46 | CON ---
DATE OF CONSULTATION: 10/14/2019 HISTORY OF PRESENT ILLNESS: Avi Austin is a very pleasant gentleman who was recently diagnosed with metastatic renal cell carcinoma. CT scanning done a couple weeks ago did not show anything, but small effusions and multiple nodules. He presented with massive effusion on the right. I was consulted because of respiratory distress. PAST MEDICAL HISTORY: Remarkable for: 1. Heavy alcohol use. He says he has not had anything to drink since the end of last year. 2. He was a smoker, but has quit smoking as well. 3. He had eye surgery in the past, foot surgery, and then recent lung biopsy. Otherwise, past medical history is unremarkable. FAMILY HISTORY: Positive for hypertension, diabetes, and cancer. REVIEW OF SYSTEMS: Otherwise negative. He says he has been unable to sleep for three nights because he had been unable to lay down, makes him short of breath. PHYSICAL EXAMINATION: VITAL SIGNS: Heart rate 112, blood pressure 140/88, respiratory rates in the teens to low 20s. HEAD AND NECK: Unremarkable. LUNGS: Remarkable for absent breath sounds on the right. HEART: Regular rhythm. ABDOMEN: Soft. EXTREMITIES: Without clubbing, cyanosis, or edema. LABORATORY DATA: White count 20.9, hemoglobin 10.9, and platelets 604. Sodium 133, potassium 4.3, chloride 100, bicarb 22, BUN 7, and creatinine 0.7. Chest x-ray shows 2/3 of the right chest is opaque. IMPRESSION: Probable malignant effusion with a clinically aggressive renal cell carcinoma. PLAN: Thoracentesis. Risks of bleeding, infection, and lung collapse were explained today. This is a 70 min consult with 50% of time spent on unit with coordination of care excluding procedures. Job ID: [id number] [facility]
[2019-10-15] MEDS: Piperacillin/Tazobactam 3.375 GM in Sodium Chloride 0.9% 100 ML IVPB SCH ×5 (00:18→23:26)
[2019-10-15] MEDS: Lorazepam 2 MG/ML VIAL SLOW IVP PRN (02:31)
[2019-10-15 04:14] LABS: #Basophils 0.1 thou/uL (0.0-0.2); #Eosinphils 2.4 thou/uL (0.0-0.7); #Lymphocytes 2.3 thou/uL (1.20-3.40); #Monocytes 1.6 thou/uL (0.11-0.59); #Neutrophils 12.4 thou/uL (1.40-6.50); %Basophils 0.4 % (0.0-1.0); %Eosinophils 12.6 % (0.0-10.0); %Lymphocytes 12.3 % (21.0-51.0); %Monocytes 8.4 % (0.0-10.0); %Neutrophils 66.3 % (42.0-75.0); Hemoglobin 10.3 g/dL (14.0-18.0); Mean Corpuscular HGB CONC 31.9 g/dL (32.0-36.0); Mean Corpuscular Hemoglobin 31.2 pg (27.0-31.0); Mean Corpuscular Volume 97.9 fL (78.0-98.0); Mean Platelet Volume 6.1 fL (7.4-10.4); Platelet Count 537 thou/uL (130-400); White Blood Cell (WBC) Count 18.7 thou/uL (4.8-10.8)
[2019-10-15 05:45] LABS: ALT (SGPT) 20 U/L (8-55); AST (SGOT) 11 U/L (5-34); Albumin 2.9 g/dL (3.5-5.0); Alkaline Phosphatase 81 U/L (40-110); Anion Gap 13 mmol/L (10-20); BUN (Urea Nitrogen) 8 mg/dL (8.9-20.6); Bilirubin, Total 0.6 mg/dL (0.2-1.2); Calc. Creatinine Clearance 172 mL/min (70-130); Calcium 8.3 mg/dL (7.8-10.44); Carbon Dioxide 26 mmol/L (22-29); Chloride 100 mmol/L (98-107); Estimated GFR-MDRD Greater than 90; Globulin 3.4 g/dL (2.4-3.5); Glucose 111 mg/dL (70-105); Magnesium 2.3 mg/dL (1.6-2.6); Protein, Total 6.3 g/dL (6.0-8.3); Sodium 135 mmol/L (136-145)
[2019-10-15] MEDS: Enoxaparin Sodium 40 MG/0.4 ML SYRINGE SC SCH (07:37)
--- NOTE | 2019-10-15 07:43 | PRG ---
DATE OF SERVICE: 10/15/2019 SUBJECTIVE: Avi Austin felt good all day, but then last night, started getting short of breath again. OBJECTIVE: VITAL SIGNS: Heart rate 113, blood pressure 148/70, respiratory rate in the 20s, oximetry is 96%. LUNGS: Remarkable for decreased breath sounds on the right. HEART: Regular rhythm. ABDOMEN: Soft. IMPRESSION: Status post thoracentesis 1 L of bloody fluid yesterday. Chest radiograph today shows persistence of a large volume of pleural fluid. 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 He may benefit from a tunneled catheter. Job ID: [id number]
--- NOTE | 2019-10-15 07:45 | OP ---
DATE OF PROCEDURE: 10/14/2019 DESCRIPTION OF PROCEDURE: Mr. Austin was placed in the sitting position on the side of the bed leaning over bedside table. His right posterior hemithorax was cleansed with chlorhexidine. A 22-gauge needle was used to localize pleural fluid on the right. 10 mL of 1% lidocaine was used to anesthetize the skin and the pleura. An 8-Prydeinig Yoid-S-Hqcudxeq Catheter was inserted into the pleural space without difficulty. 1 L of bloody fluid was easily evacuated from the right chest. He symptomatically markedly improved and actually able to go to sleep after the procedure. No air was aspirated, so no postprocedure chest radiograph was ordered. There is nothing to indicate clinically that he might have had a pneumothorax with the procedure. He tolerated the procedure well. Job ID: [id number]
--- NOTE | 2019-10-15 08:13 | RAD ---
PORTABLE CHEST: DATE: 10/15/2019. PROVIDED CLINICAL HISTORY: Pleural effusion. FINDINGS: Comparison is 10/14/2019. Significant interval change with respect to the prior examination is not apparent. IMPRESSION: As above. POS: RACHAEL
--- NOTE | 2019-10-15 09:16 | CON ---
DATE OF CONSULTATION: 10/15/2019 HISTORY OF PRESENT ILLNESS: Mr. Austin is a 44-year-old gentleman, who has metastatic renal cell carcinoma. He presented with a large right pleural effusion and severe shortness of breath. He underwent thoracentesis yesterday with evacuation of 1 L of bloody fluid. His shortness of breath improved, but the shortness of breath is worse this morning and he has recurrence of fluid on his chest x-ray. I have been asked to see him to place a PleurX catheter. PAST MEDICAL HISTORY: 1. Metastatic renal cell carcinoma. 2. Previous history of alcohol abuse. 3. Previous history of tobacco abuse. PAST SURGICAL HISTORY: Eye surgery. REVIEW OF SYSTEMS: Otherwise unremarkable. PHYSICAL EXAMINATION: GENERAL: This is a young gentleman sitting upright in bed, short of breath. VITAL SIGNS: Oxygen saturations are 96% on 4 L nasal cannula, temperature is 96.8, blood pressure 111/70. HEENT: Sclerae nonicteric. Oropharynx is moist with good dentition. NECK: Supple without adenopathy or bruit. CHEST: Has diminished breath sounds over the right hemithorax. HEART: Rhythm is regular. ABDOMEN: Soft and nontender. IMAGING STUDIES: I have reviewed his chest x-ray and CT scan series. ASSESSMENT AND PLAN: This is a pleasant 44-year-old gentleman with metastatic renal cell carcinoma for right PleurX catheter. I have discussed this with him, and he is agreeable to proceed. Job ID: [id number]
[2019-10-15] MEDS ORDERED: PROPOFOL 200 MG/20 ML VIAL ONE (09:53)
[2019-10-15] MEDS ORDERED: Succinylcholine Chloride 20 MG/ML 10 ml SYRINGE FS ONE (09:53)
[2019-10-15] MEDS ORDERED: Fentanyl 100 MCG/2 ML VIAL ONE (10:13)
[2019-10-15] MEDS ORDERED: Midazolam HCl 2 mg/2 ml Vial ONE (10:13)
[2019-10-15] MEDS ORDERED: Lidocaine 1% w/Epinephrine 1:100K 20 ML VIAL ONE (10:54)
[2019-10-15] MEDS ORDERED: Bupivacaine PF 0.5% 30 ML VIAL ONE (10:54)
--- NOTE | 2019-10-15 11:25 | OP ---
DATE OF PROCEDURE: 10/15/2019 PREOPERATIVE DIAGNOSIS: Recurrent malignant right pleural effusion. POSTOPERATIVE DIAGNOSIS: Recurrent malignant right pleural effusion. PROCEDURE PERFORMED: Right PleurX catheter placement. ANESTHESIA: General endotracheal. ANESTHESIOLOGIST: Niraj Tang MD ESTIMATED BLOOD LOSS: Minimal. FINDINGS: 3 L of bloody pleural fluid evacuated with PleurX catheter placement. DESCRIPTION OF PROCEDURE: After consent was obtained, the patient was brought to the operating room, placed in supine position on the operating table. Appropriate central line was placed and general endotracheal anesthesia was induced. Right chest wall was prepped and draped in usual sterile fashion. Chest wall was anesthetized with 1% lidocaine. A tunneled catheter was passed from the midclavicular line posteriorly to the midaxillary line. A guidewire access to the chest wall was then obtained through this second incision. Peel-away sheath was then placed and the catheter was passed through the peel-away sheath. Catheter was aspirated, 3 L of fluid returned. The catheter was secured with silk suture. Sterile dressings were applied. The patient was awakened and transferred to the recovery room in stable condition. Needle, sponge, and instrument counts were all reported as correct at the end of the procedure. The patient tolerated the procedure well. Job ID: [id number]
--- NOTE | 2019-10-15 11:29 | PDOC.HOSPP ---
- Subjective Encounter Date: 10/15/19 Encounter Time: 09:00 Subjective: overnight, right 1L bloody thoracentesis followed by prompt clinical improvement , but patient progressively more dyspneic abd tachypneic. This morning, on NC, tachypnic, dyspneic and in distress. Repeat CXR shows no interval change. - Objective Vital Signs & Weight: Vital Signs (12 hours) Temp Pulse Ox 10/15/19 07:32 96.8 F L 10/15/19 07:30 96 10/15/19 03:40 98.3 F 10/14/19 23:50 98.6 F Weight Weight 205 lb 3.2 oz Most Recent Monitor Data Heart Rate from ECG 113 NIBP 130/79 NIBP BP-Mean 96 Respiration from ECG 28 SpO2 90 I&O: 10/14/19 10/15/19 10/16/19 06:59 06:59 06:59 Intake Total 800 2336 Output Total 550 2150 Balance 250 186 Result Diagrams: 10/15/19 03:34 10/15/19 03:34 Hospitalist ROS - Review of Systems Constitutional: denies: fever, chills, sweats, weakness, malaise, other Respiratory: reports: shortness of breath. denies: cough, dry, hemoptysis, SOB with excertion, pleuritic pain, sputum, wheezing, other Cardiovascular: denies: chest pain, palpitations, orthopnea, paroxysmal noc. dyspnea, edema Gastrointestinal: denies: nausea, vomiting, abdominal pain, diarrhea - Medication Medications: Active Medications Generic Name Dose Route Start Last Admin Trade Name Freq PRN Reason Stop Dose Admin Alprazolam 0.5 mg 10/13/19 22:24 10/14/19 07:15 Xanax PO 0.5 mg BIDPRN PRN Administration Anxiety Enoxaparin Sodium 40 mg 10/14/19 09:00 10/15/19 07:37 Lovenox SC Not Given 0900 CJ Piperacillin Sod/Tazobactam 100 mls @ 200 mls/hr 10/14/19 18:00 10/15/19 06: 01 Sod 3.375 gm/ Sodium Chloride IVPB 100 mls Q6HR CJ Administration Lorazepam 1 mg 10/13/19 22:24 10/15/19 02:31 Ativan SLOW IVP 1 mg Q6H PRN Administration Anxiety/Agitation Sodium Chloride 10 ml 10/14/19 09:00 10/15/19 07:37 Flush - Normal Saline IVF Not Given Q12HR CJ - Exam General Appearance: awake alert General - other findings: in moderate distress due to dyspnea Heart: no gallops, no rubs Heart - other findings: tachycardic in 110s, sinus on tele; Respiratory: no wheezes, no rales, no ronchi, tachypneic (breathing in 30s) Respiratory - other findings: significantly reduced breath sound on RL and RM centeno. dull to percussion Psychiatric: A&O x 3 Hosp A/P - Plan #right pleural effusion -CXR reported as large R pleural effusion with loculation in apex; CXR shows worsening effusion; CXR s/p right thoracentesis reported as unchanged -clinical picture, imaging, effusion studies and effusion appearance more c/w exudative malignant effusion despite negative cytology. pH > 7.3 a/w less cytologic yield -Per PCCM, would benefit from pleurx; pending evaluation by CT surgery -will reassess indication for zosyn -continue supportive measures -PCCM, oncology, palliative onboard #RCC with metasteses to lung, possibly liver -multiple b/l pulmonary nodules on CXR -oncology following
--- NOTE | 2019-10-15 15:04 | PDOC.MOPN ---
Interval History: states breathing better, continues to cough. Able to speak in sentences - Vital Signs Vital Signs: Vital Signs (12 hours) Temp Pulse Ox 10/15/19 11:52 98.2 F 10/15/19 07:32 96.8 F L 10/15/19 07:30 96 10/15/19 03:40 98.3 F Weight Weight 205 lb 3.2 oz Most Recent Monitor Data Heart Rate from ECG 117 NIBP 111/78 NIBP BP-Mean 89 Respiration from ECG 22 SpO2 97 - Physical Exam General: Alert, Mild distress HEENT: Atraumatic, PERRLA, EOMI, Mucous membr. moist/pink Lungs: Other (right pleurx cath in place) Cardiovascular: Other (tachycardia) Skin: No rashes, No breakdown, No significant lesion Neurological: Normal speech Psych/Mental Status: Mental status NL - Labs Result Diagrams: 10/15/19 03:34 10/15/19 03:34 Lab results: Laboratory Results - last 24 hr 10/15/19 03:34: WBC 18.7 H, RBC 3.30 L, Hgb 10.3 L, Hct 32.3 L, MCV 97.9, MCH 31.2 H, MCHC 31.9 L, RDW 13.0, Plt Count 537 H, MPV 6.1 L, Neutrophils % 66.3, Lymphocytes % 12.3 L, Monocytes % 8.4, Eosinophils % 12.6 H, Basophils % 0.4, Neutrophils # 12.4 H, Lymphocytes # 2.3, Monocytes # 1.6 H, Eosinophils # 2.4 H , Basophils # 0.1 10/15/19 03:34: Sodium 135 L, Potassium 4.0, Chloride 100, Carbon Dioxide 26, Anion Gap 13, BUN 8 L, Creatinine 0.73, Estimated GFR (MDRD) Greater than 90, Glucose 111 H, Calcium 8.3, Magnesium 2.3, Total Bilirubin 0.6, AST 11, ALT 20, Alkaline Phosphatase 81, Serum Total Protein 6.3, Albumin 2.9 L, Globulin 3.4, Albumin/Globulin Ratio 0.9 L 10/14/19 10:00: Fluid Diff Path Review 10/13/19 18:46: COVID-19 PCR Not Detected Status: lab reviewed by me A/P - Problem (1) Metastatic renal cell carcinoma Current Visit: Yes Code(s): C64.9 - MALIGNANT NEOPLASM OF UNSP KIDNEY, EXCEPT RENAL PELVIS Status: Acute (2) Pleural effusion Current Visit: Yes Code(s): J90 - PLEURAL EFFUSION, NOT ELSEWHERE CLASSIFIED Status: Acute - Plan Plan: 1. Plan to treat patient with Yervoy/Opdivo immunotherapy. Attempting to acquire meds from customer support analyst as patient has no insurance until October 22. 2. Continue draining pleurx cath and wean O2. 3. Home when stable to follow-up in clinic for treatment.
[2019-10-15] MEDS: Acetaminophen 500 MG TAB PO PRN (23:27)
[2019-10-16] MEDS ORDERED: Ondansetron ODT 4 MG TAB PO PRN (03:20)
[2019-10-16] MEDS: Ondansetron PF 4 MG/2 ML Vial IVP PRN (03:24)
[2019-10-16 03:56] LABS: #Basophils 0.1 thou/uL (0.0-0.2); #Lymphocytes 2.9 thou/uL (1.20-3.40); #Monocytes 1.5 thou/uL (0.11-0.59); %Basophils 0.5 % (0.0-1.0); %Eosinophils 10.8 % (0.0-10.0); %Lymphocytes 15.7 % (21.0-51.0); %Monocytes 8.3 % (0.0-10.0); %Neutrophils 64.7 % (42.0-75.0); Hemoglobin 10.7 g/dL (14.0-18.0); Mean Corpuscular HGB CONC 31.8 g/dL (32.0-36.0); Mean Corpuscular Hemoglobin 31.4 pg (27.0-31.0); Mean Platelet Volume 6.4 fL (7.4-10.4); Platelet Count 505 thou/uL (130-400); RBC Distribution Width 13.2 % (11.5-14.5); Red Blood Cell (RBC) Count 3.41 mill/uL (4.70-6.10); White Blood Cell (WBC) Count 18.6 thou/uL (4.8-10.8)
[2019-10-16 04:10] LABS: ALT (SGPT) 18 U/L (8-55); AST (SGOT) 12 U/L (5-34); Albumin 2.7 g/dL (3.5-5.0); Alkaline Phosphatase 66 U/L (40-110); Anion Gap 13 mmol/L (10-20); BUN (Urea Nitrogen) 13 mg/dL (8.9-20.6); Calc. Creatinine Clearance 133 mL/min (70-130); Calcium 8.2 mg/dL (7.8-10.44); Carbon Dioxide 26 mmol/L (22-29); Chloride 100 mmol/L (98-107); Estimated GFR-MDRD 88; Globulin 3.2 g/dL (2.4-3.5); Glucose 108 mg/dL (70-105); Magnesium 2.3 mg/dL (1.6-2.6); Potassium 4.3 mmol/L (3.5-5.1); Protein, Total 5.9 g/dL (6.0-8.3); Sodium 135 mmol/L (136-145)
[2019-10-16] MEDS: Piperacillin/Tazobactam 3.375 GM in Sodium Chloride 0.9% 100 ML IVPB SCH ×2 (05:38→12:32)
--- NOTE | 2019-10-16 08:49 | RAD ---
PORTABLE CHEST 1 VIEW: DATE: 10/16/2019. TIME: 4:58 AM. HISTORY: Right chest tube placement. FINDINGS/IMPRESSION: There has been interval placement of a right-sided chest tube with improvement of the right pleural e ffusion noted on the previous day's exam. No pneumothorax is seen. Numerous lung nodules are again noted. There is an opacity in the right upper lobe. POS: SJDI
[2019-10-16] MEDS: Enoxaparin Sodium 40 MG/0.4 ML SYRINGE SC SCH (09:13)
--- NOTE | 2019-10-16 11:19 | PDOC.MOPN ---
Interval History: breathing unlabored, dozing. - Vital Signs Vital Signs: Vital Signs (12 hours) Temp Pulse Ox 10/16/19 11:08 98.0 F 10/16/19 08:00 98 10/16/19 07:40 98.4 F 10/16/19 03:40 98.9 F 10/15/19 23:18 98.9 F Weight Weight 201 lb 8 oz Most Recent Monitor Data Heart Rate from ECG 105 NIBP 98/69 NIBP BP-Mean 78 Respiration from ECG 11 SpO2 97 - Physical Exam General: Alert, Oriented x3, No acute distress HEENT: Atraumatic, PERRLA, EOMI, Mucous membr. moist/pink Lungs: Other (crackles right base) Cardiovascular: Regular rate Abdomen: Normal bowel sounds, Soft, No tenderness, No hepatospenomegaly, No masses Extremities: No clubbing, No cyanosis, No edema, Normal pulses, No tenderness/ swelling Neurological: Normal gait, Normal speech, Strength at 5/5 X4 ext, Normal tone, Sensation intact, Cranial nerves 3-12 NL, Reflexes 2+ - Labs Result Diagrams: 10/16/19 03:20 10/16/19 03:20 Lab results: Laboratory Results - last 24 hr 10/16/19 03:20: WBC 18.6 H, RBC 3.41 L, Hgb 10.7 L, Hct 33.7 L, MCV 99.0 H, MCH 31.4 H, MCHC 31.8 L, RDW 13.2, Plt Count 505 H, MPV 6.4 L, Neutrophils % 64.7, Lymphocytes % 15.7 L, Monocytes % 8.3, Eosinophils % 10.8 H, Basophils % 0.5, Neutrophils # 12.0 H, Lymphocytes # 2.9, Monocytes # 1.5 H, Eosinophils # 2.0 H , Basophils # 0.1 10/16/19 03:20: Procalcitonin 0.29 10/16/19 03:20: Sodium 135 L, Potassium 4.3, Chloride 100, Carbon Dioxide 26, Anion Gap 13, BUN 13, Creatinine 0.94, Estimated GFR (MDRD) 88, Glucose 108 H, Calcium 8.2, Magnesium 2.3, Total Bilirubin 1.0, AST 12, ALT 18, Alkaline Phosphatase 66, Serum Total Protein 5.9 L, Albumin 2.7 L, Globulin 3.2, Albumin/ Globulin Ratio 0.8 L Status: lab reviewed by me A/P - Problem (1) Metastatic renal cell carcinoma Current Visit: Yes Code(s): C64.9 - MALIGNANT NEOPLASM OF UNSP KIDNEY, EXCEPT RENAL PELVIS Status: Acute (2) Pleural effusion Current Visit: Yes Code(s): J90 - PLEURAL EFFUSION, NOT ELSEWHERE CLASSIFIED Status: Acute - Plan Plan: 1. continue drainage with pleurx cath 2. outpatient immunotherapy once meds obtained. 3. home when ok with other MDs.
--- NOTE | 2019-10-16 13:25 | EKG ---
Test Reason : Blood Pressure : / mmHG Vent. Rate : 110 BPM Atrial Rate : 110 BPM P-R Int : 130 ms QRS Dur : 088 ms QT Int : 320 ms P-R-T Axes : 047 013 048 degrees QTc Int : 433 ms Sinus tachycardia Otherwise normal ECG Confirmed by AMRIT COSTELLO ([id number]), index editor TERRI KHAN ([id number]) on 10/16/2019 1:25:36 PM Referred By: Confirmed By:AMRIT COSTELLO
--- NOTE | 2019-10-16 14:00 | PDOC.HOSPP ---
- Subjective Encounter Date: 10/16/19 Encounter Time: 08:00 Subjective: overnight, pleurx placed, 3L bloody fluid removed and patient improved promptly. This morning, complains of mildly worsening shortness of breath compared to yesterday but improved compared to prior Pleurx placement. Pleurx is capped. - Objective Vital Signs & Weight: Vital Signs (12 hours) Temp Pulse Ox 10/16/19 11:08 98.0 F 10/16/19 08:00 98 10/16/19 07:40 98.4 F 10/16/19 03:40 98.9 F Weight Weight 201 lb 8 oz Most Recent Monitor Data Heart Rate from ECG 105 NIBP 96/64 NIBP BP-Mean 74 Respiration from ECG 21 SpO2 98 I&O: 10/15/19 10/16/19 10/17/19 06:59 06:59 06:59 Intake Total 2336 1290 Output Total 2150 800 Balance 186 490 Result Diagrams: 10/16/19 03:20 10/16/19 03:20 Hospitalist ROS - Review of Systems Constitutional: denies: fever, chills, sweats Respiratory: reports: shortness of breath, SOB with excertion, pleuritic pain. denies: cough, dry, hemoptysis, sputum, wheezing Cardiovascular: denies: chest pain, palpitations, orthopnea, paroxysmal noc. dyspnea, edema Gastrointestinal: denies: nausea, vomiting, abdominal pain, diarrhea, constipation - Medication Medications: Active Medications Generic Name Dose Route Start Last Admin Trade Name Freq PRN Reason Stop Dose Admin Acetaminophen 1,000 mg 10/15/19 23:09 10/15/19 23:27 Tylenol PO 1,000 mg Q8H PRN Administration Moderate to Severe Pain (6-10) Alprazolam 0.5 mg 10/13/19 22:24 10/14/19 07:15 Xanax PO 0.5 mg BIDPRN PRN Administration Anxiety Benzonatate 100 mg 10/13/19 21:54 10/15/19 20:49 Tessalon PO 100 mg TIDPRN PRN Administration Cough Enoxaparin Sodium 40 mg 10/14/19 09:00 10/16/19 09:13 Lovenox SC 40 mg 0900 CJ Administration Piperacillin Sod/Tazobactam 100 mls @ 200 mls/hr 10/14/19 18:00 10/16/19 12: 32 Sod 3.375 gm/ Sodium Chloride IVPB 100 mls Q6HR CJ Administration Lorazepam 1 mg 10/13/19 22:24 10/15/19 02:31 Ativan SLOW IVP 1 mg Q6H PRN Administration Anxiety/Agitation Ondansetron HCl 4 mg 10/16/19 03:20 10/16/19 03:24 Zofran IVP 4 mg Q6H PRN Administration Nausea/Vomiting Sodium Chloride 10 ml 10/14/19 09:00 10/16/19 09:16 Flush - Normal Saline IVF 10 ml Q12HR CJ Administration Sodium Chloride 10 ml 10/14/19 08:46 10/16/19 05:38 Flush - Normal Saline IVF 10 ml PRN PRN Administration Saline Flush - Exam General Appearance: awake alert General - other findings: mild distress due to dyspnea while talking Eye: PERRL, anicteric sclera Neck: no JVD Heart: no murmur, no gallops, no rubs Heart - other findings: tachycardic Respiratory: no wheezes, no rales, no ronchi Respiratory - other findings: right sided - redued breath sounds in base, much improved; left lung normal Extremities: no edema Psychiatric: normal affect, normal behavior, A&O x 3 Hosp A/P - Plan #right pleural effusion -s/p Pleurx placement (10/14); 3L bloody fluid removed -stop zosyn since no evidence of infectious etiology -Pleurx management as per cardiothoracic surgery -PCCM, oncology, palliative onboard, cardiothoracic surgery onboard #RCC with metasteses to lung, possibly liver -multiple b/l pulmonary nodules on CXR -oncology following Disposition: can be transfered to the floor pending clearance by CTS and PCCM
--- NOTE | 2019-10-16 16:30 | PRG ---
DATE OF SERVICE: 10/16/2019 Avi Austin is 100% better than he was yesterday morning. Over 3 L of pleural fluid was taken out and a PleurX catheter was inserted. He is afebrile. Heart rate is 105, respiratory rates in the 20s, blood pressure is 125/75. Lungs, heart, and abdomen are otherwise unchanged. He probably would benefit from IV fluid, as I suspect he will start reaccumulating this pleural fluid until he can get chemotherapy. This will be at the expense of intravascular volume. We will follow the other physicians. Job ID: [id number]
[2019-10-16] MEDS: Acetaminophen 500 MG TAB PO PRN (19:34)
[2019-10-16] MEDS: Benzonatate 100 MG CAP PO PRN (20:38)
[2019-10-17] MEDS: Benzonatate 100 MG CAP PO PRN (03:06)
[2019-10-17] MEDS: Acetaminophen 500 MG TAB PO PRN (03:06)
[2019-10-17 03:54] LABS: #Basophils 0.1 thou/uL (0.0-0.2); #Eosinphils 2.3 thou/uL (0.0-0.7); #Lymphocytes 1.8 thou/uL (1.20-3.40); #Monocytes 1.3 thou/uL (0.11-0.59); #Neutrophils 11.6 thou/uL (1.40-6.50); %Basophils 0.4 % (0.0-1.0); %Eosinophils 13.5 % (0.0-10.0); %Lymphocytes 10.7 % (21.0-51.0); %Monocytes 7.6 % (0.0-10.0); %Neutrophils 67.8 % (42.0-75.0); Hemoglobin 9.9 g/dL (14.0-18.0); Mean Corpuscular HGB CONC 31.3 g/dL (32.0-36.0); Mean Corpuscular Hemoglobin 30.9 pg (27.0-31.0); Mean Corpuscular Volume 98.6 fL (78.0-98.0); Mean Platelet Volume 6.6 fL (7.4-10.4); Platelet Count 469 thou/uL (130-400); RBC Distribution Width 13.2 % (11.5-14.5); Red Blood Cell (RBC) Count 3.19 mill/uL (4.70-6.10); White Blood Cell (WBC) Count 17.1 thou/uL (4.8-10.8)
[2019-10-17 04:22] LABS: Anion Gap 10 mmol/L (10-20); BUN (Urea Nitrogen) 11 mg/dL (8.9-20.6); Calc. Creatinine Clearance 181 mL/min (70-130); Carbon Dioxide 28 mmol/L (22-29); Chloride 98 mmol/L (98-107); Estimated GFR-MDRD Greater than 90; Glucose 112 mg/dL (70-105); Magnesium 2.5 mg/dL (1.6-2.6); Potassium 3.9 mmol/L (3.5-5.1); Sodium 132 mmol/L (136-145)
[2019-10-17] MEDS: ALPRAZolam 0.5 MG TAB PO PRN ×2 (04:58→21:27)
--- NOTE | 2019-10-17 08:16 | RAD ---
PORTABLE CHEST: HISTORY: Pneumonia. COMPARISON: Comparison is made to exam earlier today. FINDINGS: Diffuse bilateral infiltrates. Right side effusion tracking along the right lateral chest wall into the right apex, unchanged in appearance from film earlier today. The right chest tube is unchanged i n position. IMPRESSION: No interval change when compared to film earlier today. POS: AGW
[2019-10-17] MEDS: Enoxaparin Sodium 40 MG/0.4 ML SYRINGE SC SCH (08:17)
[2019-10-17] MEDS: guaiFENesin/Codeine Phosphate 200 mg/20 mg 10 ml UD Cup PO PRN ×3 (08:17→22:13)
--- NOTE | 2019-10-17 10:45 | RAD ---
Exam: Chest one view HISTORY:Shortness of breath Comparison: 10/16/2019 FINDINGS: Cardiac silhouette: Normal Aorta: Unremarkable Pulmonary vessels: Normal Costophrenic angles: Stable right sided pleural fluid with loculation LUNGS: Multifocal opacities compatible with parenchymal masses. Stable right-sided chest tube. Pneumothorax: None Osseous abnormalities: None IMPRESSION: No significant change
--- NOTE | 2019-10-17 11:02 | PDOC.HOSPP ---
- Subjective Encounter Date: 10/17/19 Encounter Time: 09:00 Subjective: no overnight events. This morning, complains of persistent cough despite benzonatate resulting in chest pain only when he coughs. Shortness of breath improved compared to prior Pleurx but slightly worse compared to yesterday. otherwise no complaints - Objective Vital Signs & Weight: Vital Signs (12 hours) Temp Pulse Resp BP Pulse Ox 10/17/19 07:54 98 10/17/19 07:08 96.7 F L 10/17/19 00:00 98.7 F 108 H 16 94/73 97 Weight Weight 204 lb 1.6 oz Most Recent Monitor Data Heart Rate from ECG 107 NIBP 105/66 NIBP BP-Mean 79 Respiration from ECG 18 SpO2 95 I&O: 10/16/19 10/17/19 10/18/19 06:59 06:59 06:59 Intake Total 1290 620 Output Total 800 940 Balance 490 -320 Result Diagrams: 10/17/19 03:16 10/17/19 03:16 Hospitalist ROS - Review of Systems Constitutional: denies: fever, chills, sweats, weakness, malaise, other Respiratory: reports: cough, dry, shortness of breath, pleuritic pain. denies: hemoptysis, sputum, wheezing Cardiovascular: denies: chest pain, palpitations, edema Gastrointestinal: denies: nausea, vomiting, abdominal pain, diarrhea Genitourinary: denies: dysuria, frequency, incontinence, hematuria - Medication Medications: Active Medications Generic Name Dose Route Start Last Admin Trade Name Freq PRN Reason Stop Dose Admin Acetaminophen 1,000 mg 10/15/19 23:09 10/17/19 03:06 Tylenol PO 1,000 mg Q8H PRN Administration Moderate to Severe Pain (6-10) Alprazolam 0.5 mg 10/13/19 22:24 10/17/19 04:58 Xanax PO 0.5 mg BIDPRN PRN Administration Anxiety Enoxaparin Sodium 40 mg 10/14/19 09:00 10/17/19 08:17 Lovenox SC 40 mg 0900 CJ Administration Guaifenesin/Codeine Phosphate 10 ml 10/17/19 08:08 10/17/19 08:17 Robitussin Ac PO 10 ml Q6H PRN Administration Cough Ondansetron HCl 4 mg 10/16/19 03:20 10/16/19 03:24 Zofran IVP 4 mg Q6H PRN Administration Nausea/Vomiting Sodium Chloride 10 ml 10/14/19 09:00 10/16/19 20:33 Flush - Normal Saline IVF 10 ml Q12HR CJ Administration Sodium Chloride 10 ml 10/14/19 08:46 10/16/19 05:38 Flush - Normal Saline IVF 10 ml PRN PRN Administration Saline Flush - Exam General - other findings: in mild distress because of coughing Neck: no JVD Heart: no murmur, no gallops, no rubs Heart - other findings: tachycardic, sinus based on tele Respiratory: no wheezes, no rales, no ronchi Respiratory - other findings: right sided breath sounds reduced to midfield; right lung sounds unremarkab Gastrointestinal: soft, non-tender, non-distended, normal bowel sounds, no bruit Extremities: no edema Psychiatric: normal affect, normal behavior, A&O x 3 Hosp A/P - Plan #right pleural effusion -s/p Pleurx placement (10/14); 3L bloody fluid removed; capped -repeat CXR 10/15 PM no significant change compared to AM -Pleurx management as per PCCM and cardiothoracic surgery -PCCM, oncology, palliative onboard, cardiothoracic surgery onboard #RCC with metasteses to lung, possibly liver -multiple b/l pulmonary nodules on CXR -oncology following Disposition: can be transfered to the floor pending clearance by CTS and PCCM
--- NOTE | 2019-10-17 11:16 | PDOC.MOPN ---
Interval History: working with PT, BALLESTEROS noted. - Vital Signs Vital Signs: Vital Signs (12 hours) Temp Pulse Resp BP Pulse Ox 10/17/19 07:54 98 10/17/19 07:08 96.7 F L 10/17/19 00:00 98.7 F 108 H 16 94/73 97 Weight Weight 204 lb 1.6 oz Most Recent Monitor Data Heart Rate from ECG 107 NIBP 105/66 NIBP BP-Mean 79 Respiration from ECG 18 SpO2 95 - Physical Exam General: Alert, Oriented x3, No acute distress HEENT: Atraumatic, PERRLA, EOMI, Mucous membr. moist/pink Lungs: Other Cardiovascular: Regular rate Abdomen: Normal bowel sounds, Soft, No tenderness, No hepatospenomegaly, No masses Neurological: Normal gait, Normal speech, Strength at 5/5 X4 ext, Normal tone, Sensation intact, Cranial nerves 3-12 NL, Reflexes 2+ - Labs Result Diagrams: 10/17/19 03:16 10/17/19 03:16 Lab results: Laboratory Results - last 24 hr 10/17/19 03:16: WBC 17.1 H, RBC 3.19 L, Hgb 9.9 L, Hct 31.4 L, MCV 98.6 H, MCH 30.9, MCHC 31.3 L, RDW 13.2, Plt Count 469 H, MPV 6.6 L, Neutrophils % 67.8, Lymphocytes % 10.7 L, Monocytes % 7.6, Eosinophils % 13.5 H, Basophils % 0.4, Neutrophils # 11.6 H, Lymphocytes # 1.8, Monocytes # 1.3 H, Eosinophils # 2.3 H , Basophils # 0.1 10/17/19 03:16: Sodium 132 L, Potassium 3.9, Chloride 98, Carbon Dioxide 28, Anion Gap 10, BUN 11, Creatinine 0.68 L, Estimated GFR (MDRD) Greater than 90, Glucose 112 H, Calcium 8.0, Magnesium 2.5 Status: lab reviewed by me A/P - Problem (1) Metastatic renal cell carcinoma Current Visit: Yes Code(s): C64.9 - MALIGNANT NEOPLASM OF UNSP KIDNEY, EXCEPT RENAL PELVIS Status: Acute (2) Pleural effusion Current Visit: Yes Code(s): J90 - PLEURAL EFFUSION, NOT ELSEWHERE CLASSIFIED Status: Acute - Plan Plan: 1. Cytology on pleural fluid positive for malignant cells 2. Breathing improved with pleurx cath placement, drain prn 3. Attempting to get immunotherapy from tumblers supervisor 4. working on financial assistance 5. home when stable 6. follow-up in clinic
--- NOTE | 2019-10-17 11:21 | PRG ---
DATE OF SERVICE: 10/17/2019 Mr. Austin said he got more short of breath last night. It is unclear to me how much of this was anxiety and how much of this was related to reaccumulation of pleural fluid. Chest radiograph was done this morning. Obviously, his lung parenchymal mets are still seen. His radiograph is improved compared to his film on 10/13. If he becomes more tachypneic, we should consider draining him today. I will discuss this with his nurse. Job ID: [id number]
[2019-10-18] MEDS ORDERED: ALPRAZolam 0.5 MG TAB PO SCH (02:00)
[2019-10-18 04:28] LABS: Anion Gap 12 mmol/L (10-20); BUN (Urea Nitrogen) 13 mg/dL (8.9-20.6); Calc. Creatinine Clearance 173 mL/min (70-130); Calcium 8.3 mg/dL (7.8-10.44); Carbon Dioxide 27 mmol/L (22-29); Chloride 95 mmol/L (98-107); Estimated GFR-MDRD Greater than 90; Glucose 124 mg/dL (70-105); Magnesium 2.3 mg/dL (1.6-2.6); Potassium 4.1 mmol/L (3.5-5.1); Sodium 130 mmol/L (136-145)
--- NOTE | 2019-10-18 07:39 | PDOC.HOSPP ---
- Subjective Encounter Date: 10/18/19 Encounter Time: 07:30 Subjective: overnight, attempted to drain pleurx but tube clogged per nursing report. This morning, patient slumped forward, complaining of not being able to breathe. Senses b/l pulmonary congestion. Denies significant chest pain preventing him from taking deep breaths. cough improved since started guaifenasin/codeine. - Objective Vital Signs & Weight: Vital Signs (12 hours) Temp Pulse Ox 10/18/19 07:34 98.7 F 10/18/19 04:00 98.3 F 10/18/19 00:00 98.3 F 10/17/19 20:00 98.6 F 96 Weight Weight 208 lb 6.4 oz Most Recent Monitor Data Heart Rate from ECG 114 NIBP 139/76 NIBP BP-Mean 97 Respiration from ECG 27 SpO2 98 I&O: 10/17/19 10/18/19 10/19/19 06:59 06:59 06:59 Intake Total 620 1000 Output Total 940 955 Balance -320 45 Result Diagrams: 10/17/19 03:16 10/18/19 03:19 Hospitalist ROS - Review of Systems Constitutional: denies: chills, sweats Respiratory: reports: cough, dry, shortness of breath, pleuritic pain, wheezing. denies: hemoptysis, sputum Cardiovascular: reports: orthopnea. denies: chest pain, palpitations, edema Gastrointestinal: denies: nausea, vomiting, abdominal pain - Medication Medications: Active Medications Generic Name Dose Route Start Last Admin Trade Name Freq PRN Reason Stop Dose Admin Acetaminophen 1,000 mg 10/15/19 23:09 10/17/19 03:06 Tylenol PO 1,000 mg Q8H PRN Administration Moderate to Severe Pain (6-10) Alprazolam 0.5 mg 10/13/19 22:24 10/17/19 21:27 Xanax PO 0.5 mg BIDPRN PRN Administration Anxiety Enoxaparin Sodium 40 mg 10/14/19 09:00 10/17/19 08:17 Lovenox SC 40 mg 0900 CJ Administration Guaifenesin/Codeine Phosphate 10 ml 10/17/19 08:08 10/17/19 22:13 Robitussin Ac PO 10 ml Q6H PRN Administration Cough Ondansetron HCl 4 mg 10/16/19 03:20 10/17/19 19:06 Zofran Odt PO 4 mg Q6H PRN Administration Nausea/Vomiting Ondansetron HCl 4 mg 10/16/19 03:20 10/16/19 03:24 Zofran IVP 4 mg Q6H PRN Administration Nausea/Vomiting Sodium Chloride 10 ml 10/14/19 09:00 10/17/19 21:27 Flush - Normal Saline IVF 10 ml Q12HR CJ Administration Sodium Chloride 10 ml 10/14/19 08:46 10/16/19 05:38 Flush - Normal Saline IVF 10 ml PRN PRN Administration Saline Flush - Exam General Appearance: awake alert General - other findings: in mild ditress because of shortness of breath Heart: no murmur, no gallops, no rubs Heart - other findings: tachy in 100s, sinus on tele Respiratory: no rales, no ronchi Respiratory - other findings: b/l expiratory wheezing Gastrointestinal: soft, non-tender, non-distended, normal bowel sounds Extremities: no edema Psychiatric: normal behavior, A&O x 3 Hosp A/P - Plan #dyspnea #right pleural effusion -final cytology +ve for malignant cells c/w RCC mets -s/p Pleurx placement (10/14); 3L bloody fluid removed; capped; minimal drainage since; catheter reported to be clogged by overnight nurse -repeat CXR 10/15 PM no significant change compared to AM (after 3L drainage); unchanged -wheezing on exam (5/); may be hyperreactivity of airways due to immune reponse to cancer or perivascular edema resulting in extrinsic compression of airways -respiratory treatments -repeat CXR, ABG; based on results may start steroids -Pleurx management as per PCCM and cardiothoracic surgery -PCCM, oncology, palliative onboard, cardiothoracic surgery onboard #hyponatremia #RCC with metasteses to lung, possibly liver -multiple b/l pulmonary nodules on CXR -oncology following Disposition: Full code DVT PPx: enoxeparin GI PPx: no indication
[2019-10-18] MEDS ORDERED: Sodium Chloride 0.9% 1,000 ML IV SCH (08:15)
[2019-10-18 09:24] LABS: Actual Bicarbonate (HCO3a) 27.5 mEq/L (22-28); Base Excess (BEa) 2.5 mEq/L (-2.0 to +3.0); CO2 Tension 44.3 mmHg (35.0-45.0); Calcium, Ionized 1.14 mmol/L (1.12-1.30); Carboxyhemoglobin (COHb) 1.2 gm% (0.0-3.0); Hemoglobin (Hb) 10.1 g/dL (14.0-18.0); O2 Tension (PaO2) 62.6 mmHg (80.0-100.0); Potassium - ABG Lab 4.04 mmol/L (3.70-5.30); pH, Arterial 7.41 (7.35-7.45)
[2019-10-18 09:25] LABS: ALV-art Gradient 110.185 (0-20); Puncture Site RRA
[2019-10-18] MEDS: Enoxaparin Sodium 40 MG/0.4 ML SYRINGE SC SCH (09:38)
--- NOTE | 2019-10-18 12:55 | RAD ---
PORTABLE CHEST: INDICATION: Heart failure. COMPARISON: 10/17/2019. FINDINGS: Large right effusion with apparent fluid loculated along the right chest wall and apex, unchanged fro m yesterday. Bilateral patchy infiltrates with vascular congestion and small left effusion again not ed. IMPRESSION: No significant change from yesterday. POS: [facility]
[2019-10-18] MEDS: Morphine 2 MG/ML SYRINGE SLOW IVP PRN ×2 (13:30→20:06)
--- NOTE | 2019-10-18 17:33 | PRG ---
DATE OF SERVICE: 10/18/2019 SUBJECTIVE: Avi Austin may have some loculated fluid at the right base, but he appears to be doing reasonably well. He is significantly weak. OBJECTIVE: VITAL SIGNS: He is afebrile, heart rate is 116, respiratory rate 24, oximetry is 92% on 3 L, and blood pressure 121/78. LUNGS: Unchanged. HEART: Unchanged ABDOMEN: Unchanged. IMPRESSION: Metastatic renal cell carcinoma with a tremendous volume of parenchymal lung disease, which explains a lot of his residual dyspnea. Apparently, now he has [employer] insurance, but here, [place] does not take [employer] insurance, so he either needs to be seen next week in clinic, start chemo or be transferred to [facility] for inpatient chemo. I am not sure he is strong enough to go home. His electrolytes are unchanged today. Potassium is 4.1. Job ID: [id number]
[2019-10-18] MEDS: ALPRAZolam 0.5 MG TAB PO PRN (23:05)
[2019-10-19] MEDS: Morphine 2 MG/ML SYRINGE SLOW IVP PRN ×3 (00:05→09:23)
[2019-10-19] MEDS: guaiFENesin/Codeine Phosphate 200 mg/20 mg 10 ml UD Cup PO PRN ×2 (01:24→15:50)
[2019-10-19 04:26] LABS: Anion Gap 13 mmol/L (10-20); BUN (Urea Nitrogen) 12 mg/dL (8.9-20.6); Calc. Creatinine Clearance 177 mL/min (70-130); Calcium 8.5 mg/dL (7.8-10.44); Carbon Dioxide 28 mmol/L (22-29); Chloride 94 mmol/L (98-107); Estimated GFR-MDRD Greater than 90; Glucose 121 mg/dL (70-105); Potassium 4.7 mmol/L (3.5-5.1); Sodium 130 mmol/L (136-145)
--- NOTE | 2019-10-19 08:03 | PDOC.HOSPP ---
- Subjective Encounter Date: 10/19/19 (f/u dyspnea) Encounter Time: 08:02 Subjective: Pt continues to feel short of breath, unable to sleep due to this - states he will just fall asleep and then gasp and wake up. Denies any pain, n/v. Pt felt more short of breath with neb tx- has been refusing them - Objective Vital Signs & Weight: Vital Signs (12 hours) Temp 10/19/19 06:57 96.4 F L 10/19/19 03:13 99.6 F 10/18/19 23:05 98.8 F Weight Weight 194 lb 8 oz Most Recent Monitor Data Heart Rate from ECG 123 NIBP 107/90 NIBP BP-Mean 95 Respiration from ECG 21 SpO2 93 I&O: 10/18/19 10/19/19 10/20/19 06:59 06:59 06:59 Intake Total 1000 1033 Output Total 955 1150 Balance 45 -117 Result Diagrams: 10/17/19 03:16 10/19/19 03:20 EKG Reviewed by me: Yes (tele - sinus 118 currently) Hospitalist ROS - Medication Medications: Active Medications Generic Name Dose Route Start Last Admin Trade Name Freq PRN Reason Stop Dose Admin Acetaminophen 1,000 mg 10/15/19 23:09 10/17/19 03:06 Tylenol PO 1,000 mg Q8H PRN Administration Moderate to Severe Pain (6-10) Albuterol/Ipratropium 3 ml 10/18/19 10:30 10/19/19 06:55 Duoneb NEB 3 ml [id number] CJ Administration Alprazolam 0.5 mg 10/13/19 22:24 10/18/19 23:05 Xanax PO 0.5 mg BIDPRN PRN Administration Anxiety Enoxaparin Sodium 40 mg 10/14/19 09:00 10/18/19 09:38 Lovenox SC 40 mg 0900 CJ Administration Guaifenesin/Codeine Phosphate 10 ml 10/17/19 08:08 10/19/19 01:24 Robitussin Ac PO 10 ml Q6H PRN Administration Cough Morphine Sulfate 2 mg 10/18/19 11:23 10/19/19 04:40 Morphine SLOW IVP 2 mg Q4H PRN Administration Pain/dyspnea Ondansetron HCl 4 mg 10/16/19 03:20 04/30/20 19:06 Zofran Odt PO 4 mg Q6H PRN Administration Nausea/Vomiting Ondansetron HCl 4 mg 10/16/19 03:20 10/16/19 03:24 Zofran IVP 4 mg Q6H PRN Administration Nausea/Vomiting Sodium Chloride 10 ml 10/14/19 09:00 10/18/19 20:06 Flush - Normal Saline IVF 10 ml Q12HR CJ Administration Sodium Chloride 10 ml 10/14/19 08:46 10/16/19 05:38 Flush - Normal Saline IVF 10 ml PRN PRN Administration Saline Flush - Exam General Appearance: NAD General - other findings: appears dyspneic, but not in significant distress Respiratory - other findings: decreased breath sounds at right base,no audible wheezing/rhonchi Gastrointestinal: soft, non-tender, non-distended Extremities: no cyanosis, no clubbing, no edema Psychiatric: normal affect Hosp A/P (1) Metastatic renal cell carcinoma Code(s): C64.9 - MALIGNANT NEOPLASM OF UNSP KIDNEY, EXCEPT RENAL PELVIS Status : Acute (2) Dyspnea Code(s): R06.00 - DYSPNEA, UNSPECIFIED Status: Acute Qualifiers: Dyspnea type: shortness of breath Qualified Code(s): R06.02 - Shortness of breath; R06.00 - Dyspnea, unspecified; R06.01 - Orthopnea (3) Hyponatremia Code(s): E87.1 - HYPO-OSMOLALITY AND HYPONATREMIA Status: Acute (4) Pleural effusion Code(s): J90 - PLEURAL EFFUSION, NOT ELSEWHERE CLASSIFIED Status: Acute - Plan Appreciate Pulm recs - will inquire about a cpap for use while sleeping Appreciate Onc recs - needs to start chemo - planning for outpatient setting at this time hyponatremia stable - encourage more salt intake Will change nebs to prn use continue meds as ordered continue pt/ot dvt prophy - lovenox gi prophy - not indicated code status full disposition planning - based on insurance, need for chemotherapy as inpatient or outpatient and where this may be obtained. In current condition, pt is not stable for discharge to home.
[2019-10-19] MEDS: ALPRAZolam 0.5 MG TAB PO PRN (09:19)
[2019-10-19] MEDS: Enoxaparin Sodium 40 MG/0.4 ML SYRINGE SC SCH (09:19)
--- NOTE | 2019-10-19 11:42 | RAD ---
CHEST ONE VIEW: HISTORY: Pleural effusion. COMPARISON: Radiograph from the prior day. FINDINGS: There is a size decrease in the right layering pleural effusion. Similar left pleural effusion with s ubpleural layering. Nodules projecting over the lungs are similar. There is a loculation at the right superior aspect of the pleural effusion with the vascular component improved with a right sided thor acostomy. IMPRESSION: 1. Improved right dependent portion of the pleural effusion and loculated component along the superio r aspect of the pleural space, similar in size. 2. Similar left layering pleural effusion which is now primarily subpulmonic. 3. Numerous pulmonary nodules are similar. POS: HOME
--- NOTE | 2019-10-19 12:27 | PRG ---
DATE OF SERVICE: 10/19/2019 SUBJECTIVE: Avi Austin is doing reasonably well overnight, although he is starting to have more problems breathing at night. An order has been placed for BiPAP at night whenever he sleeps. I discussed thoracentesis with him to see if there is loculated fluid at his right base. He was agreeable to this. After consent forms were signed, the patient was placed in the sitting position. His right lower lateral posterior chest was anesthetized after cleansing with chlorhexidine. Once the interspace was anesthetized, an 8-Swedish catheter was inserted in a sterile fashion into the pleural space. One liter of bloody fluid was evacuated from the right posterior hemithorax. The puncture was probably two ribs down from the previous thoracentesis. He tolerated this well. Postprocedure chest radiograph shows clearing of the lateral posterior loculated fluid on chest radiograph. He had symptomatic improvement in his dyspnea. Fluid was disposed as we already have malignant cytology. Job ID: [id number]
[2019-10-19] MEDS: Temazepam 15 MG CAP PO PRN (20:31)
[2019-10-20] MEDS: Ondansetron PF 4 MG/2 ML Vial IVP PRN ×3 (00:06→23:57)
[2019-10-20] MEDS: Melatonin 3 MG TAB PO PRN (00:19)
[2019-10-20] MEDS: guaiFENesin/Codeine Phosphate 200 mg/20 mg 10 ml UD Cup PO PRN ×2 (00:19→20:52)
[2019-10-20 04:20] LABS: #Basophils 0.1 thou/uL (0.0-0.2); #Eosinphils 1.9 thou/uL (0.0-0.7); #Lymphocytes 1.7 thou/uL (1.20-3.40); #Monocytes 1.7 thou/uL (0.11-0.59); #Neutrophils 12.7 thou/uL (1.40-6.50); %Basophils 0.4 % (0.0-1.0); %Eosinophils 10.7 % (0.0-10.0); %Lymphocytes 9.1 % (21.0-51.0); %Monocytes 9.5 % (0.0-10.0); %Neutrophils 70.3 % (42.0-75.0); Hemoglobin 9.3 g/dL (14.0-18.0); Mean Corpuscular Hemoglobin 30.7 pg (27.0-31.0); Mean Corpuscular Volume 95.9 fL (78.0-98.0); Mean Platelet Volume 6.7 fL (7.4-10.4); Platelet Count 427 thou/uL (130-400); RBC Distribution Width 13.8 % (11.5-14.5); Red Blood Cell (RBC) Count 3.04 mill/uL (4.70-6.10); White Blood Cell (WBC) Count 18.1 thou/uL (4.8-10.8)
[2019-10-20 04:39] LABS: Anion Gap 12 mmol/L (10-20); BUN (Urea Nitrogen) 17 mg/dL (8.9-20.6); Calc. Creatinine Clearance 158 mL/min (70-130); Calcium 8.5 mg/dL (7.8-10.44); Carbon Dioxide 28 mmol/L (22-29); Chloride 92 mmol/L (98-107); Estimated GFR-MDRD Greater than 90; Glucose 119 mg/dL (70-105); Sodium 127 mmol/L (136-145)
--- NOTE | 2019-10-20 08:12 | PDOC.HOSPP ---
- Subjective Encounter Date: 10/20/19 (f/u metastatic renal cancer) Encounter Time: 08:10 Subjective: Pt c/o unable to sleep - states he fell asleep about an hour twice and was woken up by a staff member for care. He reports being tired, states no sleep in 4 days. He reports his breathing is more comfortable today, s/p thoracentesis of 1 L fluid yesterday. he denies any cp. o/n noted to have nausea and be uncomfortable. RN notes poor PO intake, urine concentrated - Objective Vital Signs & Weight: Vital Signs (12 hours) Temp Pulse Resp Pulse Ox 10/20/19 07:00 96.8 F L 10/20/19 00:00 98.5 F 10/19/19 21:25 120 H 14 97 Weight Weight 194 lb 3.636 oz Most Recent Monitor Data Heart Rate from ECG 115 NIBP 104/58 NIBP BP-Mean 73 Respiration from ECG 17 SpO2 96 I&O: 10/19/19 10/20/19 10/21/19 06:59 06:59 06:59 Intake Total 1033 1440 Output Total 1150 1200 Balance -117 240 Result Diagrams: 10/20/19 03:31 10/20/19 03:31 EKG Reviewed by me: Yes (tele - sinus tach 110's) Hospitalist ROS - Medication Medications: Active Medications Generic Name Dose Route Start Last Admin Trade Name Freq PRN Reason Stop Dose Admin Acetaminophen 1,000 mg 10/15/19 23:09 10/17/19 03:06 Tylenol PO 1,000 mg Q8H PRN Administration Moderate to Severe Pain (6-10) Enoxaparin Sodium 40 mg 10/14/19 09:00 10/19/19 09:19 Lovenox SC 40 mg 0900 CJ Administration Guaifenesin/Codeine Phosphate 10 ml 10/17/19 08:08 10/20/19 00:19 Robitussin Ac PO 10 ml Q6H PRN Administration Cough Melatonin 3 mg 10/18/19 01:36 10/20/19 00:19 Melatonin PO 3 mg HS PRN Administration Insomnia Morphine Sulfate 2 mg 10/18/19 11:23 10/19/19 09:23 Morphine SLOW IVP 2 mg Q4H PRN Administration Pain/dyspnea Ondansetron HCl 4 mg 10/16/19 03:20 10/17/19 19:06 Zofran Odt PO 4 mg Q6H PRN Administration Nausea/Vomiting Ondansetron HCl 4 mg 10/16/19 03:20 10/20/19 00:06 Zofran IVP 4 mg Q6H PRN Administration Nausea/Vomiting Sodium Chloride 10 ml 10/14/19 09:00 10/19/19 20:35 Flush - Normal Saline IVF 10 ml Q12HR CJ Administration Sodium Chloride 10 ml 10/14/19 08:46 10/16/19 05:38 Flush - Normal Saline IVF 10 ml PRN PRN Administration Saline Flush Temazepam 30 mg 10/19/19 10:45 10/19/19 20:31 Restoril PO 30 mg HSPRN PRN Administration Insomnia - Exam General - other findings: tachypneic, tired appearing, not in extreme distress Heart: RRR, no murmur Respiratory - other findings: decreased breath sounds right base, no audible wheezing/rhonchi Gastrointestinal: soft, non-tender, normal bowel sounds Neurological: no focal deficits Hosp A/P (1) Metastatic renal cell carcinoma Code(s): C64.9 - MALIGNANT NEOPLASM OF UNSP KIDNEY, EXCEPT RENAL PELVIS Status : Acute (2) Dyspnea Code(s): R06.00 - DYSPNEA, UNSPECIFIED Status: Acute Qualifiers: Dyspnea type: shortness of breath Qualified Code(s): R06.02 - Shortness of breath; R06.00 - Dyspnea, unspecified; R06.01 - Orthopnea (3) Hyponatremia Code(s): E87.1 - HYPO-OSMOLALITY AND HYPONATREMIA Status: Acute (4) Pleural effusion Code(s): J90 - PLEURAL EFFUSION, NOT ELSEWHERE CLASSIFIED Status: Acute - Plan Appreciate Pulm recs - s/p thoracentesis yesterday with subjective improvement in breathing Appreciate Onc recs - needs to start chemo which is not available in the inpatient setting at this hospital. Plan is for f/u in the outpatient clinic. - Aggressive metastatic renal cell carcinoma. hyponatremia worsening - c/w hypovolemic hyponatremia due to poor PO intake for solid foods. Will start some low rate IVF hydration with NS - avoiding a higher rate due to concerns that this may worsen the metastatic pleural effusion - check urine studies continue meds as ordered continue pt/ot as tolerated Marshal/RN to minimize staff member disruptions with goal of improving amount of time that pt can remain asleep. dvt prophy - lovenox gi prophy - not indicated code status full disposition planning - current plan is if pt is stable for discharge to home, outpatient follow up in the Cancer clinic for initiation of chemo.
[2019-10-20] MEDS: Enoxaparin Sodium 40 MG/0.4 ML SYRINGE SC SCH (09:53)
[2019-10-20] MEDS: Sodium Chloride 0.9% 1,000 ML IV SCH (09:54)
--- NOTE | 2019-10-20 09:59 | RAD ---
CHEST 1 VIEW: Date: 10/20/2019 HISTORY: Shortness of breath. COMPARISON: Radiograph prior day. FINDINGS: Similar appearance left subpulmonic pleural effusion. Slight interval size decrease of the right laye ring pleural effusion. Pulmonary nodules are similar. No pneumothorax. Thoracostomy tube is in similar location. Loculated component to the right pleural effusion and right lung apex. IMPRESSION: Slight interval size decrease of dependent right layering pleural effusion. POS: HOME
[2019-10-20] MEDS: ALPRAZolam 0.5 MG TAB PO PRN ×2 (13:27→17:39)
[2019-10-20 13:42] LABS: Creatinine, Urine 45.88 mg/dL (63-166); Sodium, Urine Less than 20 mmol/L (Not Available)
--- NOTE | 2019-10-20 19:36 | PRG ---
DATE OF SERVICE: 10/20/2019 SUBJECTIVE: Avi Austin could not wear BiPAP last night. OBJECTIVE: VITAL SIGNS: He is afebrile. Heart rate is 109, blood pressure is 120/68, respiratory rates in the teens. LUNGS: Unchanged. HEART: Unchanged. ABDOMEN: Unchanged. DIAGNOSTIC DATA: Chest x-ray today showed slight increase in the right effusion. anything significant. IMPRESSION: Extensive metastatic renal cell carcinoma, therapy, improved with yesterday's thoracentesis. Job ID: [id number]
[2019-10-20] MEDS: Temazepam 15 MG CAP PO PRN (20:52)
[2019-10-21 03:52] LABS: #Basophils 0.1 thou/uL (0.0-0.2); #Eosinphils 2.3 thou/uL (0.0-0.7); #Lymphocytes 1.9 thou/uL (1.20-3.40); #Monocytes 1.8 thou/uL (0.11-0.59); #Neutrophils 11.8 thou/uL (1.40-6.50); %Basophils 0.4 % (0.0-1.0); %Eosinophils 12.8 % (0.0-10.0); %Lymphocytes 10.6 % (21.0-51.0); %Monocytes 9.9 % (0.0-10.0); %Neutrophils 66.2 % (42.0-75.0); Hemoglobin 8.8 g/dL (14.0-18.0); Mean Corpuscular HGB CONC 32.3 g/dL (32.0-36.0); Mean Corpuscular Hemoglobin 31.2 pg (27.0-31.0); Mean Corpuscular Volume 96.9 fL (78.0-98.0); Mean Platelet Volume 6.7 fL (7.4-10.4); Platelet Count 406 thou/uL (130-400); RBC Distribution Width 14.1 % (11.5-14.5); Red Blood Cell (RBC) Count 2.83 mill/uL (4.70-6.10); White Blood Cell (WBC) Count 17.9 thou/uL (4.8-10.8)
[2019-10-21] MEDS: Sodium Chloride 0.9% 1,000 ML IV SCH (04:01)
[2019-10-21 04:13] LABS: Anion Gap 15 mmol/L (10-20); BUN (Urea Nitrogen) 15 mg/dL (8.9-20.6); Calc. Creatinine Clearance 164 mL/min (70-130); Calcium 8.3 mg/dL (7.8-10.44); Carbon Dioxide 23 mmol/L (22-29); Chloride 92 mmol/L (98-107); Estimated GFR-MDRD Greater than 90; Glucose 109 mg/dL (70-105); Potassium 4.9 mmol/L (3.5-5.1); Sodium 125 mmol/L (136-145)
[2019-10-21] MEDS: Morphine 2 MG/ML SYRINGE SLOW IVP PRN ×4 (05:33→21:02)
--- NOTE | 2019-10-21 07:40 | RAD ---
Exam: Chest one view HISTORY:Lung cancer. Pleural effusion Comparison: 10/20/2019 FINDINGS: Cardiac silhouette: Normal Aorta: Unremarkable Pulmonary vessels: Normal Costophrenic angles: Persistent bilateral pleural effusions with loculated pleural fluid in the right lung apex LUNGS: Stable multiple parenchymal masses Pneumothorax: None Osseous abnormalities: None IMPRESSION: No significant interval change
[2019-10-21] MEDS: Enoxaparin Sodium 40 MG/0.4 ML SYRINGE SC SCH (08:12)
[2019-10-21] MEDS: ALPRAZolam 0.5 MG TAB PO PRN (08:12)
[2019-10-21] MEDS ORDERED: ALPRAZolam 0.5 MG TAB PO PRN (08:28)
--- NOTE | 2019-10-21 08:28 | PDOC.HOSPP ---
- Subjective Encounter Date: 10/21/19 (f/u metastatic renal cancer) Encounter Time: 08:26 Subjective: Pt c/o worsening breathing - more short of breath today. Denies any pain. RN' s note nausea with eating, and pt feeling generally anxious. - Objective Vital Signs & Weight: Vital Signs (12 hours) Temp Pulse Ox 10/21/19 07:27 96 10/21/19 07:11 97.4 F L 10/21/19 04:00 97 10/20/19 23:41 98.7 F Weight Weight 196 lb 1 oz Most Recent Monitor Data Heart Rate from ECG 115 NIBP 146/69 NIBP BP-Mean 94 Respiration from ECG 10 SpO2 91 I&O: 10/20/19 10/21/19 10/22/19 06:59 06:59 06:59 Intake Total 1440 2957 Output Total 1200 1150 Balance 240 1807 Result Diagrams: 10/21/19 03:23 10/21/19 03:23 EKG Reviewed by me: Yes (tele - sinus 110's, rare pvc's) Hospitalist ROS - Medication Medications: Active Medications Generic Name Dose Route Start Last Admin Trade Name Freq PRN Reason Stop Dose Admin Acetaminophen 1,000 mg 10/15/19 23:09 10/17/19 03:06 Tylenol PO 1,000 mg Q8H PRN Administration Moderate to Severe Pain (6-10) Alprazolam 0.5 mg 10/19/19 10:45 10/21/19 08:12 Xanax PO 0.5 mg QIDPRN PRN Administration Anxiety Enoxaparin Sodium 40 mg 10/14/19 09:00 10/21/19 08:12 Lovenox SC 40 mg 0900 CJ Administration Guaifenesin/Codeine Phosphate 10 ml 10/17/19 08:08 10/20/19 20:52 Robitussin Ac PO 10 ml Q6H PRN Administration Cough Sodium Chloride 1,000 mls @ 50 mls/hr 10/20/19 08:15 10/21/19 04:01 Normal Saline 0.9% IV 1,000 mls .Q20H CJ Administration Melatonin 3 mg 10/18/19 01:36 10/20/19 00:19 Melatonin PO 3 mg HS PRN Administration Insomnia Morphine Sulfate 2 mg 10/18/19 11:23 10/21/19 05:33 Morphine SLOW IVP 2 mg Q4H PRN Administration Pain/dyspnea Ondansetron HCl 4 mg 10/16/19 03:20 10/17/19 19:06 Zofran Odt PO 4 mg Q6H PRN Administration Nausea/Vomiting Ondansetron HCl 4 mg 10/16/19 03:20 10/20/19 23:57 Zofran IVP 4 mg Q6H PRN Administration Nausea/Vomiting Sodium Chloride 10 ml 10/14/19 09:00 10/20/19 20:54 Flush - Normal Saline IVF 10 ml Q12HR CJ Administration Sodium Chloride 10 ml 10/14/19 08:46 10/16/19 05:38 Flush - Normal Saline IVF 10 ml PRN PRN Administration Saline Flush Temazepam 30 mg 10/19/19 10:45 10/20/19 20:52 Restoril PO 30 mg HSPRN PRN Administration Insomnia - Exam General Appearance: NAD Heart: RRR, no murmur Respiratory - other findings: decreased breath sounds at right base, no audible wheezing Gastrointestinal: soft, non-tender, non-distended, normal bowel sounds Extremities - other findings: 1+ pitting edema bilateral LE Psychiatric - other findings: tired appearing Hosp A/P (1) Metastatic renal cell carcinoma Code(s): C64.9 - MALIGNANT NEOPLASM OF UNSP KIDNEY, EXCEPT RENAL PELVIS Status : Acute (2) Dyspnea Code(s): R06.00 - DYSPNEA, UNSPECIFIED Status: Acute Qualifiers: Dyspnea type: shortness of breath Qualified Code(s): R06.02 - Shortness of breath; R06.00 - Dyspnea, unspecified; R06.01 - Orthopnea (3) Hyponatremia Code(s): E87.1 - HYPO-OSMOLALITY AND HYPONATREMIA Status: Acute (4) Pleural effusion Code(s): J90 - PLEURAL EFFUSION, NOT ELSEWHERE CLASSIFIED Status: Acute - Plan Appreciate Pulm recs - s/p thoracentesis 10/18, catheter unplugged yesterday. Appreciate Onc recs - discussed with [employer] Yeny Macias - who plans to talk with Dr. Morris today. Unfortunately, this cancer is aggressive and has demonstrated rapid metastases and the malignant pleural effusion. - pt needs immunotherapy and will require 3 cycles = 9 weeks for it to have an effect. They are working to obtain the medication from the company. She states [facility] transfer is not a higher level of care as the medication would also not be available there as an inpatient. 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 Will d/c the NS. Based wait for Oncology recommendations to determine if Nephrology consult indicated continue meds as ordered continue pt/ot as tolerated dvt prophy - lovenox gi prophy - not indicated code status full Pt in serious condition.
--- NOTE | 2019-10-21 11:01 | PRG ---
DATE OF SERVICE: 10/21/2019 SUBJECTIVE: Mr. Austin is clinically unchanged. Still complaining shortness of breath. OBJECTIVE: VITAL SIGNS: Heart rate of 112, blood pressure of 113/69, and respiratory rates of 20s. GENERAL: Overall, he is unchanged. LABORATORY DATA: White count 17.9, hemoglobin 8.8, and platelets 406,000. Electrolytes are unremarkable, only for sodium of 125. Intakes and outputs, positive 1807. IMPRESSION AND PLAN: Metastatic renal cell carcinoma with a tunneled PleurX catheter status post thoracentesis this weekend for catheter dysfunction. Catheter apparently is functioning now. He had minimal fluid yesterday. Continue with supportive care. Awaiting next step of the Oncology. Job ID: [id number]
--- NOTE | 2019-10-21 13:20 | PDOC.MOPN ---
Interval History: Short of breath, on ventimask - Vital Signs Vital Signs: Vital Signs (12 hours) Temp Pulse Ox 10/21/19 11:26 96.4 F L 10/21/19 07:27 96 10/21/19 07:11 97.4 F L 10/21/19 04:00 97 Weight Weight 196 lb 1 oz Most Recent Monitor Data Heart Rate from ECG 117 NIBP 129/94 NIBP BP-Mean 105 Respiration from ECG 9 SpO2 89 - Physical Exam General: Alert, Mild distress HEENT: Atraumatic, PERRLA, EOMI, Mucous membr. moist/pink Lungs: Other Cardiovascular: Other (tachy) Abdomen: Normal bowel sounds, Soft, No tenderness, No hepatospenomegaly, No masses Skin: No rashes, No breakdown, No significant lesion Neurological: Normal speech Psych/Mental Status: Mental status NL - Labs Result Diagrams: 10/21/19 03:23 10/21/19 03:23 Lab results: Laboratory Results - last 24 hr 10/21/19 03:23: WBC 17.9 H, RBC 2.83 L, Hgb 8.8 L, Hct 27.4 L, MCV 96.9, MCH 31.2 H, MCHC 32.3, RDW 14.1, Plt Count 406 H, MPV 6.7 L, Neutrophils % 66.2, Lymphocytes % 10.6 L, Monocytes % 9.9, Eosinophils % 12.8 H, Basophils % 0.4, Neutrophils # 11.8 H, Lymphocytes # 1.9, Monocytes # 1.8 H, Eosinophils # 2.3 H , Basophils # 0.1 10/21/19 03:23: Sodium 125 L, Potassium 4.9, Chloride 92 L, Carbon Dioxide 23, Anion Gap 15, BUN 15, Creatinine 0.73, Estimated GFR (MDRD) Greater than 90, Glucose 109 H, Calcium 8.3 10/20/19 12:50: Urine Osmolality 250 L 10/20/19 12:50: Urine Creatinine 45.88 L, Urine Sodium Less than 20 Status: lab reviewed by me A/P - Problem (1) Metastatic renal cell carcinoma Current Visit: Yes Code(s): C64.9 - MALIGNANT NEOPLASM OF UNSP KIDNEY, EXCEPT RENAL PELVIS Status: Acute (2) Pleural effusion Current Visit: Yes Code(s): J90 - PLEURAL EFFUSION, NOT ELSEWHERE CLASSIFIED Status: Acute - Plan Plan: Discussed with Dr. Morris, Dr. Bermudez, and Dr. Riley Patient needs Yervoy/Opdivo immunotherapy, although treatment will take many weeks to see improvement and he may not survive that long. Unable to get these medications at this facility, attempting to obtain from [facility] Patient now has [employer] insurance starting October 17 Plan to initiate transfer to [facility] in an attempt for him to get treatment as an inpatient there If they decline, hospice is likely his only option. Patient is aware and agrees to proceed Very difficult and unfortunate situation, patient appears to have very aggressive disease palliative care on board to assist with emotional need
--- NOTE | 2019-10-21 16:25 | PDOC.PALCO ---
Palliative Care Consult - Consult Details Requesting Physician: Dr Riley Reason for Consult: goals of care, family support, complex decision-making - Pertinent HPI 44 year old male who had a recent diagnosis of a renal mass that is metastatic. Increase in shortness of breath, persistent cough. Presented to the emergency room and after evaluation was admitted for acute respiratory distress with hypoxia, right sided pleural effusion. Currently in IMCU awaiting possible transfer to [facility] for higher level of care. Has not started chemotherapy secondary to awaiting insurance coverage. - Pertinent PMH Negative for a significant past medical history - Social History Smoking Status: Current every day smoker Smoking: cigarettes Alcohol Use: daily Drug Use History: none Living Situation: - Medications MAR Reviewed: Yes - Allergies Allergies/Adverse Reactions: Allergies Allergy/AdvReac Type Severity Reaction Status Date / Time No Known Allergies Allergy Verified 10/13/19 21:51 - Subjective Labored respirations, tripod position. ROS limited secondary to shortness of breath and extreme fatigue. - ROS Constitutional: weakness ENT: dry mouth Respiratory: shortness of breath, shortness of breath with extertion Cardiology: light headedness, palpitations Gastrointestinal: bloating - Objective Vital Signs: Vital Signs - Most Recent Temp Pulse Resp BP Pulse Ox 96.4 F L 112 H 14 121/84 96 10/21/19 15:36 10/20/19 14:25 10/19/19 21:25 10/20/19 14:25 10/21/19 07:27 Palliative Performance Scale: 40 - Physical Exam Constitutional: ill appearing, mild distress HEENT: EOMI, moist MMs, sclera anicteric Respiratory: accessory muscle use, labored respirations, tachypnea Cardiovascular: irregular Gastrointestinal: soft, non-tender Musculoskeletal: edema present Neurology: moves all 4 limbs Psychiatric: flat affect - Problem List (1) Palliative care encounter Code(s): Z51.5 - ENCOUNTER FOR PALLIATIVE CARE Current Visit: Yes Status: Acute (2) Dyspnea Code(s): R06.00 - DYSPNEA, UNSPECIFIED Current Visit: Yes Status: Acute Qualifiers: Dyspnea type: shortness of breath Qualified Code(s): R06.02 - Shortness of breath; R06.00 - Dyspnea, unspecified; R06.01 - Orthopnea (3) Metastatic renal cell carcinoma Code(s): C64.9 - MALIGNANT NEOPLASM OF UNSP KIDNEY, EXCEPT RENAL PELVIS Current Visit: Yes Status: Acute (4) Pleural effusion Code(s): J90 - PLEURAL EFFUSION, NOT ELSEWHERE CLASSIFIED Current Visit: Yes Status: Acute (5) Left renal mass Code(s): N28.89 - OTHER SPECIFIED DISORDERS OF KIDNEY AND URETER Current Visit : No Status: Acute (6) Metastatic cancer Code(s): C79.9 - SECONDARY MALIGNANT NEOPLASM OF UNSPECIFIED SITE Current Visit: No Status: Acute - Plan/Recommendations Plan: Initiated conversation in relation to emotional support and revisited resuscitation status. Initially Mr Austin was open to transition to a DNAR, however decided to remain with full resuscitation measures. Visit was limited secondary to need to have a BM. Will follow up 10/22/2019 and attempt to have his to come for more emotional support. Significantly fatigued and limited on treatment options secondary to aggressive nauture of cancer and not yet having started chemotherapy. Awaiting to see if he is able to transition to [facility] in [place] if able to have access to chemo therapy agent. Communicated with Dr Riley, Palliative Care will continue to offer emotional support and address goal of care as able. [40] minutes spent on this encounter with >50% of the time in counseling and coordination of care. Thank you for this very appropriate consult.
--- NOTE | 2019-10-21 18:23 | PDOC.EVN ---
Event Note - Event Note Event Note: Hyponatremia - start fluid restriction of 1 liter per day and monitor, c/w SIADH Transfer - spoke with [facility] Gilberto - [facility] will accept the patient in transfer if he is not accepted by [facility]. They confirmed that they also will not provide inpatient immunotherapy. Therefore it will be a lateral transfer for stabilization. Given it's the evening, I placed a hold on the transfer. A conversation will need to occur tomorrow - ideally with Oncology, Palliative Care, Hospitalist regarding goals of care. This is an aggressive cancer causing progressive worsening on a daily basis. Even if immunotherapy were available, it's anticipated to take 3 cycles (9 weeks) to see improvement, and there can be worsening prior to improvement. Unfortunately, patient's current condition is compromised and I'm uncertain that he will survive any worsening - from medication directed at the cancer or progression of the cancer. He is high risk for in=hospital . Discussed care with Palliative Care earlier and pt desired DNR status. When nursing staff discussed the paperwork with him, he stated it is not what he wanted. Will need follow up for this. 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 There is no availability of medication for inpatient tx directed at the cancer. There is potentially availability of transfer to [facility] - however it's unknown how this will benefit the patient, and I'm concerned that it may cause pain or discomfort to move him with benefit. Await multidisciplinary discussion as noted above to determine the next steps of care. May need to inquire with patient about involvement of family members in discussion and/or decision making.
[2019-10-21] MEDS: Ondansetron PF 4 MG/2 ML Vial IVP PRN (20:29)
[2019-10-21] MEDS ORDERED: Naloxone HCl 0.4 mg/ml Vial ONE (21:51)
[2019-10-21 21:55] LABS: Actual Bicarbonate (HCO3a) 27.8 mEq/L (22-28); Calcium, Ionized 1.17 mmol/L (1.12-1.30); Carboxyhemoglobin (COHb) 1.2 gm% (0.0-3.0); Hemoglobin (Hb) 10.4 g/dL (14.0-18.0); O2 Tension (PaO2) 68.9 mmHg (80.0-100.0); Potassium - ABG Lab 6.31 mmol/L (3.70-5.30); pH, Arterial 7.27 (7.35-7.45)
[2019-10-21 21:57] LABS: CO2 Tension 61.7 mmHg (35.0-45.0)
[2019-10-21 21:58] LABS: ALV-art Gradient 103.525 (0-20); Puncture Site LBR
--- NOTE | 2019-10-21 22:23 | PDOC.EVN ---
Event Note - Event Note Event Note: Nursing called, patient rescended DNR, not tolerating CPAP. Dionicio called, ABG Resp. Acidosis with hypoxia, Dinoicio wanted hopitalist to assess for possible intubation. Ordered BMP and LA. Dr. Darnell to assess patient.
[2019-10-21] MEDS: Melatonin 3 MG TAB PO PRN (22:37)
[2019-10-21] MEDS ORDERED: Naloxone HCl 0.4 mg/ml Vial IV SCH (23:00)
[2019-10-21 23:05] LABS: Actual Bicarbonate (HCO3a) 27.7 mEq/L (22-28); Base Excess (BEa) 0.2 mEq/L (-2.0 to +3.0); CO2 Tension 59.1 mmHg (35.0-45.0); Hemoglobin (Hb) 11.1 g/dL (14.0-18.0); O2 Tension (PaO2) 91.9 mmHg (80.0-100.0); pH, Arterial 7.29 (7.35-7.45)
[2019-10-21 23:06] LABS: Calcium, Ionized 1.14 mmol/L (1.12-1.30); Carboxyhemoglobin (COHb) 1.4 gm% (0.0-3.0); Potassium - ABG Lab 6.02 mmol/L (3.70-5.30)
[2019-10-21 23:07] LABS: Lactic Acid 3.3 mmol/L (0.5-2.2)
[2019-10-21 23:07] LABS: ALV-art Gradient 190.725 (0-20); Puncture Site RR
[2019-10-21 23:11] LABS: Anion Gap 19 mmol/L (10-20); BUN (Urea Nitrogen) 21 mg/dL (8.9-20.6); Calc. Creatinine Clearance 148 mL/min (70-130); Calcium 8.6 mg/dL (7.8-10.44); Carbon Dioxide 24 mmol/L (22-29); Chloride 90 mmol/L (98-107); Estimated GFR-MDRD Greater than 90; Glucose 126 mg/dL (70-105); Potassium 5.9 mmol/L (3.5-5.1); Sodium 127 mmol/L (136-145)
[2019-10-21] MEDS ORDERED: Insulin Regular 300 UNITS/3 ML VIAL IVP SCH (23:45)
[2019-10-21] MEDS ORDERED: Calcium Gluconate 9.2 MEQ in Sodium Chloride 0.9% 100 ML IVPB SCH (23:59)
--- NOTE | 2019-10-22 00:01 | PDOC.EVN ---
Event Note - Event Note Event Note: Patient became lethargic in IMU, nursing gave narcan and patient perked up and called for evaluation, patient seen and examined, ABG reviewed as well as rest of chart, respiratory acidosis noted, patient in room requests to rescind DNR. order in chart. placed on bipap, repeat ABG w/ slight improvement, discussed with Dr Greenberg of pulmonay who agreed with increasing rate to 20/min on BIPAP, will monitor but hopefully will avoid intubation. patient improved on reevaluation with less owrk of breathing and more calm. given melatonin for sleep, avoid narcotics if able. insulin/d50 and calcium gluconate ordered for K of 6, will avoid kayexelate due to high probability of aspiration on BIPAP after narcan
[2019-10-22] MEDS: Dextrose 50% Abboject 50 ML SYRINGE SLOW IVP SCH ×2 (00:08→03:17)
[2019-10-22 01:02] LABS: pH, Arterial 7.16 (7.35-7.45)
[2019-10-22 01:03] LABS: Actual Bicarbonate (HCO3a) 30.7 mEq/L (22-28); Base Excess (BEa) 0.5 mEq/L (-2.0 to +3.0); CO2 Tension 88.8 mmHg (35.0-45.0); Carboxyhemoglobin (COHb) 1.1 gm% (0.0-3.0); Hemoglobin (Hb) 9.9 g/dL (14.0-18.0); O2 Tension (PaO2) 96.5 mmHg (80.0-100.0)
[2019-10-22 01:04] LABS: Puncture Site RBR
[2019-10-22] MEDS ORDERED: CCU Electrolyte Replacement 1 EACH IVPB SCH (01:18)
[2019-10-22] MEDS ORDERED: Norepinephrine 8 MG/0.9% NS 250 ML IVPB PRN (01:18)
[2019-10-22] MEDS ORDERED: Fentanyl BOLUS 250 ML IVPB PRN (01:24)
[2019-10-22] MEDS ORDERED: DISCONTINUE PREVIOUS NARCOTIC PAIN MEDICATIONS AND BENZODIAZEPINES FS SCH (01:24)
[2019-10-22] MEDS ORDERED: Propofol BOLUS 1,000 MG/100 ML VIAL IV PRN (01:24)
[2019-10-22] MEDS: PROPOFOL 200 MG/20 ML VIAL IV SCH ×2 (01:25→03:17)
[2019-10-22] MEDS ORDERED: Ventilator Sedation Protocol 1 EACH FS SCH (01:30)
[2019-10-22] MEDS ORDERED: Rocuronium Bromide 10 MG/ML (10ML VIAL) IVPB SCH (02:15)
[2019-10-22 02:22] LABS: Actual Bicarbonate (HCO3a) 27.7 mEq/L (22-28); Base Excess (BEa) 1.9 mEq/L (-2.0 to +3.0); Carboxyhemoglobin (COHb) 1.2 gm% (0.0-3.0); Hemoglobin (Hb) 9.6 g/dL (14.0-18.0); O2 Tension (PaO2) 76.1 mmHg (80.0-100.0); pH, Arterial 7.37 (7.35-7.45)
[2019-10-22 02:23] LABS: Calcium, Ionized 1.21 mmol/L (1.12-1.30); Puncture Site RBR
[2019-10-22] MEDS: Propofol 1,000 MG/100 ML VIAL IV PRN ×4 (02:25→18:14)
[2019-10-22] MEDS: Lorazepam 2 MG/ML VIAL SLOW IVP PRN (02:29)
[2019-10-22] MEDS: Morphine 2 MG/ML SYRINGE SLOW IVP PRN (02:29)
[2019-10-22] MEDS: fentaNYL Citrate/PF 2,000 MCG in Sodium Chloride 0.9% 60 ML IV SCH (03:05)
[2019-10-22 04:04] LABS: #Eosinphils 0.7 thou/uL (0.0-0.7); #Lymphocytes 0.9 thou/uL (1.20-3.40); #Monocytes 0.9 thou/uL (0.11-0.59); #Neutrophils 10.2 thou/uL (1.40-6.50); %Basophils 0.3 % (0.0-1.0); %Eosinophils 5.5 % (0.0-10.0); %Monocytes 6.9 % (0.0-10.0); %Neutrophils 80.3 % (42.0-75.0); Hemoglobin 8.2 g/dL (14.0-18.0); Mean Corpuscular HGB CONC 31.9 g/dL (32.0-36.0); Mean Corpuscular Hemoglobin 30.7 pg (27.0-31.0); Mean Corpuscular Volume 96.3 fL (78.0-98.0); Mean Platelet Volume 6.8 fL (7.4-10.4); Platelet Count 363 thou/uL (130-400); RBC Distribution Width 14.1 % (11.5-14.5); Red Blood Cell (RBC) Count 2.68 mill/uL (4.70-6.10); White Blood Cell (WBC) Count 12.7 thou/uL (4.8-10.8)
[2019-10-22 04:12] LABS: Anion Gap 17 mmol/L (10-20); BUN (Urea Nitrogen) 23 mg/dL (8.9-20.6); Calc. Creatinine Clearance 144 mL/min (70-130); Calcium 8.5 mg/dL (7.8-10.44); Carbon Dioxide 24 mmol/L (22-29); Chloride 91 mmol/L (98-107); Estimated GFR-MDRD Greater than 90; Glucose 249 mg/dL (70-105); Potassium 5.7 mmol/L (3.5-5.1); Sodium 126 mmol/L (136-145)
[2019-10-22] MEDS: Enoxaparin Sodium 40 MG/0.4 ML SYRINGE SC SCH (07:51)
--- NOTE | 2019-10-22 08:47 | RAD ---
SINGLE VIEW OF THE CHEST: COMPARISON: 10/21/2019. HISTORY: Endotracheal tube placement. Respiratory failure. COVID testing pending. FINDINGS: A single view of the chest shows an enlarged but stable cardiomediastinal silhouette. There are stab le multifocal infiltrates. These appear slightly nodular in appearance. An endotracheal tube is see n with its tip in the lower below the level of the clavicles. There may be a small left pleural effu robinson. Thickening in the right peripheral apex and in the left apex may represent pleural thickening or fluid. IMPRESSION: There are multifocal opacities in the lungs. These are nodular in appearance and most likely represe nt multifocal metastases. Superimposed infiltrates cannot be excluded. There also appear to be smal l bilateral pleural effusions. POS: EAA
--- NOTE | 2019-10-22 11:08 | PDOC.EVN ---
Event Note - Event Note Event Note: Patient's breathing worsening. CXR shows radio-opaque layering that is consistent with external accumulation of bloody fluid surrounding pleurx dressing. Requested nursing staff to attempt to drain pleurx, which reportedly yielded only 5cc serosanguinous fluid with some blood clots, and to clean area surrounding dressing to avoid masquerading of external bloody fluid as intrapleural fluid and improve accuracy of chest xray.
--- NOTE | 2019-10-22 11:17 | PDOC.PALPN ---
Palliative Progress Note - Subjective Mechanical ventilation, sedation. Transfer on hold 10/21/2019, continued respiratory decline through night resulting in intubation to maintain effective airway. - Objective Vital Signs: Vital Signs - Most Recent Temp Pulse Resp BP Pulse Ox 100.4 F H 102 H 22 H 96/59 L 99 10/22/19 07:00 10/22/19 10:27 10/22/19 10:00 10/22/19 10:27 10/22/19 07:37 - Physical Exam Constitutional: encephalitic, ill appearing HEENT: moist MMs, sclera anicteric Deviation from normal: Mechanical ventilation, secretions Cardiovascular: RRR, diminished peripheral pulses Gastrointestinal: soft, non-tender, incontinent Genitourinary: bone catheter Deviation from normal: scant hematuria Musculoskeletal: no clubbing Deviation from normal: slight edema Deviation from normal: sedated Skin: cap refill <2 seconds, no lesions, no rash Deviation from normal: diaphoretic Deviation from normal: sedated, - Assessment (1) Palliative care encounter Code(s): Z51.5 - ENCOUNTER FOR PALLIATIVE CARE Current Visit: Yes Status: Acute (2) Dyspnea Code(s): R06.00 - DYSPNEA, UNSPECIFIED Current Visit: Yes Status: Acute Qualifiers: Dyspnea type: shortness of breath Qualified Code(s): R06.02 - Shortness of breath; R06.00 - Dyspnea, unspecified; R06.01 - Orthopnea (3) Metastatic renal cell carcinoma Code(s): C64.9 - MALIGNANT NEOPLASM OF UNSP KIDNEY, EXCEPT RENAL PELVIS Current Visit: Yes Status: Acute (4) Pleural effusion Code(s): J90 - PLEURAL EFFUSION, NOT ELSEWHERE CLASSIFIED Current Visit: Yes Status: Acute (5) Left renal mass Code(s): N28.89 - OTHER SPECIFIED DISORDERS OF KIDNEY AND URETER Current Visit : No Status: Acute (6) Metastatic cancer Code(s): C79.9 - SECONDARY MALIGNANT NEOPLASM OF UNSPECIFIED SITE Current Visit: No Status: Acute - Plan Plan: Spoke at length with patient MARKO Kwok and son Hunter who is 19. Rissa states she is MPOA secondary to friendship and Mr Austin did not want his son to make decisions on his own. She is in [place] and, will arrive at the hospital between 3-4. Taiwo will also arrive then. Rissa was having difficulty "wrapping her head" around the situation and poor prognosis. Taiwo appears to be grieving, but understanding of poor prognosis. Communicated with Dr Carrillo, Dr Morris and Dr Barrientos. Respiratory distress related to aggressive metastatic cancer. As per Dr Morris treatment will take months to be therapeutic and secondary to current need for intubation there are no current options to improve outcome. Will add scopolamine to mitigate secretions [60] minutes spent on this encounter with >50% of the time in counseling and coordination of care. - ROS Non Response: due to endotracheal tube, due to mental status
[2019-10-22] MEDS ORDERED: Scopolamine 1.5 mg/72 hour Patch TD SCH (11:30)
[2019-10-22 13:19] VITALS: BMI 31.6
--- NOTE | 2019-10-22 14:48 | PDOC.MOPN ---
Interval History: events of last night noted. Patient now intubated, comfortable on vent. - Vital Signs Vital Signs: Vital Signs (12 hours) Temp Pulse Resp BP Pulse Ox 10/22/19 14:08 97 98/57 L 10/22/19 14:00 22 H 10/22/19 12:00 100.4 F H 22 H 10/22/19 10:27 102 H 96/59 L 10/22/19 10:00 22 H 10/22/19 08:30 106 H 101/61 10/22/19 08:00 22 H 10/22/19 07:37 99 10/22/19 07:00 100.4 F H 10/22/19 04:00 98.3 F 22 H Weight Admit Weight 198 lb 10.2 oz Weight 190 lb 0.6 oz Most Recent Monitor Data Heart Rate from ECG 99 NIBP 98/57 NIBP BP-Mean 70 Respiration from ECG 23 SpO2 100 - Physical Exam General: Other (sedated) HEENT: Atraumatic Lungs: Other Cardiovascular: Regular rate Abdomen: Normal bowel sounds Extremities: Other (1+ edema all extremities) Neurological: Other (on vent) - Labs Result Diagrams: 10/22/19 03:30 10/22/19 03:30 Lab results: Laboratory Results - last 24 hr 10/22/19 03:30: WBC 12.7 H, RBC 2.68 L, Hgb 8.2 L, Hct 25.8 L, MCV 96.3, MCH 30.7, MCHC 31.9 L, RDW 14.1, Plt Count 363, MPV 6.8 L, Neutrophils % 80.3 H, Lymphocytes % 7.0 L, Monocytes % 6.9, Eosinophils % 5.5, Basophils % 0.3, Neutrophils # 10.2 H, Lymphocytes # 0.9 L, Monocytes # 0.9 H, Eosinophils # 0.7 , Basophils # 0.0 10/22/19 03:30: Sodium 126 L, Potassium 5.7 H, Chloride 91 L, Carbon Dioxide 24 , Anion Gap 17, BUN 23 H, Creatinine 0.83, Estimated GFR (MDRD) Greater than 90 , Glucose 249 H, Calcium 8.5 10/22/19 02:18: Specimen Type ART, Puncture Site RBR, Bicarbonate Actual 27.7, ABG pH 7.37, ABG pCO2 49.0 H, ABG pO2 76.1 L, ABG O2 Sat Calc/John 94.6, ABG O2 Content 12.7 L, ABG Base Excess 1.9, ABG Hematocrit 28.0 L, ABG Hemoglobin 9.6 L , ABG Oxyhemoglobin 94.6, ABG Carboxyhemoglobin 1.2, ABG Methemoglobin 0.30, A- a O2 Gradient 219.150 H, Sodium 126 L, Potassium 5.60 H, Chloride 93 L, Ionized Calcium 1.21, Mode of Support SIMV, Mechanical Rate 22, Inspired O2 50, Tidal Volume 550, Pressure Support 10, PEEP or CPAP 5.0 10/22/19 01:26: POC Glucose 239 H 10/22/19 00:55: Specimen Type ART, Puncture Site RBR, Bicarbonate Actual 30.7 H , ABG pH 7.16 L*, ABG pCO2 88.8 H*, ABG pO2 96.5, ABG O2 Sat Calc/John 95.4, ABG O2 Content 13.3 L, ABG Base Excess 0.5, ABG Hematocrit 29.0 L, ABG Hemoglobin 9.9 L, ABG Oxyhemoglobin 95.4, ABG Carboxyhemoglobin 1.1, ABG Methemoglobin 0.30, A-a O2 Gradient 149.000 H, Sodium 123 L, Potassium 5.50 H, Chloride 92 L, Ionized Calcium 1.30, Mode of Support NIV, Inspired O2 50, Peak Inspir Pressure 12, PEEP or CPAP 5.0 10/21/19 22:55: Specimen Type ART, Puncture Site RR, Bicarbonate Actual 27.7, ABG pH 7.29 L, ABG pCO2 59.1 H, ABG pO2 91.9, ABG O2 Sat Calc/John 95.8, ABG Base Excess 0.2, ABG Hematocrit 33.0 L, ABG Hemoglobin 11.1 L, ABG Oxyhemoglobin 94.2, ABG Carboxyhemoglobin 1.4, ABG Methemoglobin 0.30, ABG Deoxyhemoglobin 4.1 H, Tristin Test POSITIVE, A-a O2 Gradient 190.725 H, Sodium 125 L, Potassium 6.02 H, Chloride 92 L, Ionized Calcium 1.14, Mode of Support BIPAP 10/5, Inspired O2 50 10/21/19 22:43: Lactic Acid 3.3 H 10/21/19 22:43: Sodium 127 L, Potassium 5.9 H, Chloride 90 L, Carbon Dioxide 24 , Anion Gap 19, BUN 21 H, Creatinine 0.81, Estimated GFR (MDRD) Greater than 90 , Glucose 126 H, Calcium 8.6 10/21/19 21:50: Specimen Type ART, Puncture Site LBR, Bicarbonate Actual 27.8, ABG pH 7.27 L, ABG pCO2 61.7 H*, ABG pO2 68.9 L, ABG O2 Sat Calc/John 90.6 L, ABG O2 Content 13.1 L, ABG Base Excess 0.0, ABG Hematocrit 31.0 L, ABG Hemoglobin 10.4 L, ABG Oxyhemoglobin 89.2 L, ABG Carboxyhemoglobin 1.2, ABG Methemoglobin 0.30, ABG Deoxyhemoglobin 9.3 H, A-a O2 Gradient 103.525 H, Sodium 124 L, Potassium 6.31 H, Chloride 92 L, Ionized Calcium 1.17, Mode of Support CPAP, Inspired O2 35, PEEP or CPAP 9.0 Status: lab reviewed by me A/P - Problem (1) Metastatic renal cell carcinoma Current Visit: Yes Code(s): C64.9 - MALIGNANT NEOPLASM OF UNSP KIDNEY, EXCEPT RENAL PELVIS Status: Acute (2) Pleural effusion Current Visit: Yes Code(s): J90 - PLEURAL EFFUSION, NOT ELSEWHERE CLASSIFIED Status: Acute - Plan Plan: Patient has metastatic renal cell carcinoma, Stage IV at diagnosis Rapid progression of pleural effusion and respiratory failure despite intervention Now on ventilator/life support Unfortunately, with his advanced disease at diagnosis and rapid progression, patient unlikely to survive this admission. recommend hospice. Case discussed and agreed by Dr. Morris. Dr. Barrientos, Dr. Carrillo updated. Palliative care to discuss with family.
--- NOTE | 2019-10-22 16:03 | PRG ---
DATE OF SERVICE: 10/22/2019 SUBJECTIVE: Avi Austin got intubated last night. He is sedated for ventilation. OBJECTIVE: VITAL SIGNS: Heart rate is 96, blood pressure 108/49, respiratory rate 20s. LUNGS: Clear anteriorly. HEART: Regular rhythm. ABDOMEN: Soft. LABORATORY DATA: White count 12.7, hemoglobin 8.2, platelets 363. Sodium 126, potassium 5.7, chloride 91, bicarb 24, BUN 23, creatinine 0.83. IMPRESSION: Respiratory failure associated with clinically very aggressive renal cell carcinoma. It has become clear in my opinion that there are no viable treatment options for him. Palliative Care and Oncology the patient' s family. Withdrawal of mechanical ventilation and comfort care is the best option in my opinion. Critical care time 30 min. Job ID: [id number] MTDD
--- NOTE | 2019-10-22 17:20 | PDOC.PALFU ---
Palliative Care Follow-up Note Family to bedside, son David ([facility] [place] Revisited fragile state and poor chance for meaningful recovery. Understanding life limiting circumstances. Revisited favorite memories and adventuresome spirit of Mr Austin. They shared how this is still a shock as a few months ago he was running several miles a day. Discussed goal of care. They transitioned MR Austin to a DNAR, they are considering possible compassionate extubation tomorrow, son does not want his father to suffer. Encouraged them to rest and to come back to the hospital tomorrow and we will revisit goal of care and proceed with compassionate extubation if that is what they desire. Notified Dr Carrillo and Dr Morris, and Dr Barrientos
--- NOTE | 2019-10-22 22:09 | PDOC.HOSPP ---
- Subjective Encounter Date: 10/22/19 Subjective: Intubated, sedated. - Objective Vital Signs & Weight: Vital Signs (12 hours) Temp Pulse Resp BP Pulse Ox 10/22/19 20:00 99.4 F 22 H 100 10/22/19 18:27 97 99/54 L 10/22/19 18:00 22 H 10/22/19 16:00 99.5 F 22 H 10/22/19 14:52 98 104/53 L 10/22/19 14:08 97 98/57 L 10/22/19 14:00 22 H 10/22/19 12:00 100.4 F H 22 H 10/22/19 10:27 102 H 96/59 L Weight Admit Weight 198 lb 10.2 oz Weight 190 lb 0.6 oz Most Recent Monitor Data Heart Rate from ECG 100 NIBP 124/70 NIBP BP-Mean 88 Respiration from ECG 29 SpO2 96 I&O: 10/21/19 10/22/19 10/23/19 06:59 06:59 06:59 Intake Total 2957 880 269.3 Output Total 1150 410 640 Balance 1807 470 -370.7 Result Diagrams: 10/22/19 03:30 10/22/19 03:30 Additional Labs: Accuchecks 10/22/19 01:26 POC Glucose 239 H Hospitalist ROS - Medication Medications: Active Medications Generic Name Dose Route Start Last Admin Trade Name Freq PRN Reason Stop Dose Admin Acetaminophen 1,000 mg 10/15/19 23:09 10/17/19 03:06 Tylenol PO 1,000 mg Q8H PRN Administration Moderate to Severe Pain (6-10) Enoxaparin Sodium 40 mg 10/14/19 09:00 10/22/19 07:51 Lovenox SC 40 mg 0900 CJ Administration Guaifenesin/Codeine Phosphate 10 ml 10/17/19 08:08 10/20/19 20:52 Robitussin Ac PO 10 ml Q6H PRN Administration Cough Fentanyl Citrate 2,000 mcg/ 100 mls @ 0 mls/hr 10/22/19 01:24 10/22/19 03:05 Sodium Chloride IV 11/21/19 01:24 100 mls INF CJ Administration Protocol Per Protocol Lorazepam 2 mg 10/22/19 01:24 10/22/19 02:29 Ativan SLOW IVP 11/21/19 01:24 2 mg Q1H PRN Administration Breakthrough agitation Melatonin 3 mg 10/18/19 01:36 10/21/19 22:37 Melatonin PO 3 mg HS PRN Administration Insomnia Morphine Sulfate 2 mg 10/22/19 01:24 10/22/19 02:29 Morphine SLOW IVP 11/21/19 01:24 2 mg Q1H PRN Administration BREAKTHROUGH PAIN/Agitation Ondansetron HCl 4 mg 10/16/19 03:20 10/17/19 19:06 Zofran Odt PO 4 mg Q6H PRN Administration Nausea/Vomiting Ondansetron HCl 4 mg 10/16/19 03:20 10/21/19 20:29 Zofran IVP 4 mg Q6H PRN Administration Nausea/Vomiting Propofol 1,000 mg 10/22/19 01:24 10/22/19 18:14 Diprivan IV 11/21/19 01:24 1,000 mg INF PRN Administration TO ACHIEVE GOAL RASS Protocol Scopolamine 3 mg 10/22/19 11:30 10/22/19 12:23 Transderm Scop TD 3 mg Q3D CJ Administration Sodium Chloride 10 ml 10/14/19 09:00 10/22/19 21:45 Flush - Normal Saline IVF 10 ml Q12HR CJ Administration Sodium Chloride 10 ml 10/14/19 08:46 10/16/19 05:38 Flush - Normal Saline IVF 10 ml PRN PRN Administration Saline Flush - Exam General - other findings: intubated. Heart: RRR, no murmur Respiratory: CTAB, no wheezes Gastrointestinal: soft, non-distended Extremities: no cyanosis, no clubbing, no edema Hosp A/P (1) Acute respiratory failure with hypoxia Code(s): J96.01 - ACUTE RESPIRATORY FAILURE WITH HYPOXIA Status: Acute (2) Hyponatremia Code(s): E87.1 - HYPO-OSMOLALITY AND HYPONATREMIA Status: Acute (3) Metastatic renal cell carcinoma Code(s): C64.9 - MALIGNANT NEOPLASM OF UNSP KIDNEY, EXCEPT RENAL PELVIS Status : Acute (4) Pleural effusion Code(s): J90 - PLEURAL EFFUSION, NOT ELSEWHERE CLASSIFIED Status: Acute - Plan Patient has progression of his disease. He does not have treatment options that would offer any benefit. Discussed with PCT. Family called in today. Continuing vent support for now. Will have another discussion in the morning.
[2019-10-23] MEDS: Propofol 1,000 MG/100 ML VIAL IV PRN ×2 (01:53→07:13)
[2019-10-23] MEDS: fentaNYL Citrate/PF 2,000 MCG in Sodium Chloride 0.9% 60 ML IV SCH (02:07)
[2019-10-23] MEDS ORDERED: Morphine 10 MG/ML VIAL SLOW IVP PRN (09:27)
[2019-10-23] MEDS: Enoxaparin Sodium 40 MG/0.4 ML SYRINGE SC SCH (09:40)
--- NOTE | 2019-10-23 09:41 | PRG ---
DATE OF SERVICE: 10/23/2019 SUBJECTIVE: Avi Austin remains mechanically ventilated and sedated. I am told family wants to consider withdrawal and comfort care later today. OBJECTIVE: VITAL SIGNS: Blood pressure 93/51, heart rate 112, FiO2 is at 50%. LUNGS: Unchanged. HEART: Unchanged. ABDOMEN: Unchanged. EXTREMITIES: Unchanged. NEUROLOGIC: Not assessable since he is sedated. LABORATORY DATA: White count yesterday was 12.7. Electrolytes yesterday were remarkable for low sodium and borderline high potassium. IMPRESSION: Widely metastatic and clinically aggressive renal cell carcinoma. The best option for him is comfort care in my opinion. He can be extubated when family is ready. Critical care time 30 min. Job ID: [id number] MTDD
[2019-10-23 10:41] VITALS: BP 102/55
--- NOTE | 2019-10-23 11:01 | PDOC.PALPN ---
Palliative Progress Note - Subjective Mechanical ventilation, sedation - Objective Vital Signs: Vital Signs - Most Recent Temp Pulse Resp BP Pulse Ox 99.2 F 100 22 H 102/55 L 98 10/23/19 04:00 10/23/19 10:39 10/23/19 10:00 10/23/19 10:39 10/23/19 01:18 - Physical Exam Constitutional: NAD HEENT: moist MMs, sclera anicteric Deviation from normal: Mechanical ventilation Cardiovascular: RRR Gastrointestinal: incontinent Genitourinary: bone catheter Musculoskeletal: no cyanosis, no clubbing, pulses present Deviation from normal: sedated Skin: cap refill <2 seconds, no lesions, no rash Deviation from normal: sedated - Assessment (1) Palliative care encounter Code(s): Z51.5 - ENCOUNTER FOR PALLIATIVE CARE Current Visit: Yes Status: Acute (2) Dyspnea Code(s): R06.00 - DYSPNEA, UNSPECIFIED Current Visit: Yes Status: Acute Qualifiers: Dyspnea type: shortness of breath Qualified Code(s): R06.02 - Shortness of breath; R06.00 - Dyspnea, unspecified; R06.01 - Orthopnea (3) Metastatic renal cell carcinoma Code(s): C64.9 - MALIGNANT NEOPLASM OF UNSP KIDNEY, EXCEPT RENAL PELVIS Current Visit: Yes Status: Acute (4) Pleural effusion Code(s): J90 - PLEURAL EFFUSION, NOT ELSEWHERE CLASSIFIED Current Visit: Yes Status: Acute (5) Left renal mass Code(s): N28.89 - OTHER SPECIFIED DISORDERS OF KIDNEY AND URETER Current Visit : No Status: Acute (6) Metastatic cancer Code(s): C79.9 - SECONDARY MALIGNANT NEOPLASM OF UNSPECIFIED SITE Current Visit: No Status: Acute - Plan Plan: Family to bedside. Several questions, continue to express that they are overwhelmed as he was "normal" a few weeks ago. They are desiring to spend time with him, then seek compassionate extubation and comfort care. Amberly Mackenzie RNblueprint cutter at bedside for emotional support. *Communicated with Dr Carrillo, Dr Barrientos, and Dr Morris. *Dr Barrientos placed orders for comfort medications when compassionate extubation occurs. *Spiritual care aware *Continue to offer emotional support for family [30] minutes spent on this encounter with >50% of the time in counseling and coordination of care. - ROS Non Response: due to endotracheal tube, due to mental status
--- NOTE | 2019-10-23 11:16 | PDOC.HOSPP ---
- Subjective Encounter Date: 10/23/19 Subjective: intubated, sedated. - Objective Vital Signs & Weight: Vital Signs (12 hours) Temp Pulse Resp BP Pulse Ox 10/23/19 10:39 100 102/55 L 10/23/19 10:00 22 H 10/23/19 08:00 22 H 10/23/19 07:54 112 H 93/51 L 10/23/19 06:00 22 H 10/23/19 04:00 99.2 F 22 H 10/23/19 02:20 111 H 117/62 10/23/19 02:00 22 H 10/23/19 01:18 98 10/23/19 00:00 99.2 F 22 H Weight Admit Weight 198 lb 10.2 oz Weight 188 lb 11.451 oz Most Recent Monitor Data Heart Rate from ECG 102 NIBP 96/56 NIBP BP-Mean 69 Respiration from ECG 22 SpO2 100 I&O: 10/22/19 10/23/19 10/24/19 06:59 06:59 06:59 Intake Total 880 444.3 Output Total 410 1046 Balance 470 -601.7 Result Diagrams: 10/22/19 03:30 10/22/19 03:30 Hospitalist ROS - Medication Medications: Active Medications Generic Name Dose Route Start Last Admin Trade Name Freq PRN Reason Stop Dose Admin Acetaminophen 1,000 mg 10/15/19 23:09 10/17/19 03:06 Tylenol PO 1,000 mg Q8H PRN Administration Moderate to Severe Pain (6-10) Enoxaparin Sodium 40 mg 10/14/19 09:00 10/23/19 09:40 Lovenox SC 40 mg 0900 CJ Administration Guaifenesin/Codeine Phosphate 10 ml 10/17/19 08:08 10/20/19 20:52 Robitussin Ac PO 10 ml Q6H PRN Administration Cough Fentanyl Citrate 2,000 mcg/ 100 mls @ 0 mls/hr 10/22/19 01:24 10/23/19 02:07 Sodium Chloride IV 11/21/19 01:24 100 mls INF CJ Administration Protocol Per Protocol Lorazepam 2 mg 10/22/19 01:24 10/22/19 02:29 Ativan SLOW IVP 11/21/19 01:24 2 mg Q1H PRN Administration Breakthrough agitation Melatonin 3 mg 10/18/19 01:36 10/21/19 22:37 Melatonin PO 3 mg HS PRN Administration Insomnia Morphine Sulfate 2 mg 10/22/19 01:24 10/22/19 02:29 Morphine SLOW IVP 11/21/19 01:24 2 mg Q1H PRN Administration BREAKTHROUGH PAIN/Agitation Ondansetron HCl 4 mg 10/16/19 03:20 10/17/19 19:06 Zofran Odt PO 4 mg Q6H PRN Administration Nausea/Vomiting Ondansetron HCl 4 mg 10/16/19 03:20 10/21/19 20:29 Zofran IVP 4 mg Q6H PRN Administration Nausea/Vomiting Propofol 1,000 mg 10/22/19 01:24 10/23/19 07:13 Diprivan IV 11/21/19 01:24 1,000 mg INF PRN Administration TO ACHIEVE GOAL RASS Protocol Scopolamine 3 mg 10/22/19 11:30 10/22/19 12:23 Transderm Scop TD 3 mg Q3D CJ Administration Sodium Chloride 10 ml 10/14/19 09:00 10/23/19 09:40 Flush - Normal Saline IVF Not Given Q12HR CJ Sodium Chloride 10 ml 10/14/19 08:46 10/16/19 05:38 Flush - Normal Saline IVF 10 ml PRN PRN Administration Saline Flush - Exam General Appearance: NAD, awake alert General - other findings: Intubated Hosp A/P (1) Acute respiratory failure with hypoxia Code(s): J96.01 - ACUTE RESPIRATORY FAILURE WITH HYPOXIA Status: Acute (2) Hyponatremia Code(s): E87.1 - HYPO-OSMOLALITY AND HYPONATREMIA Status: Acute (3) Metastatic renal cell carcinoma Code(s): C64.9 - MALIGNANT NEOPLASM OF UNSP KIDNEY, EXCEPT RENAL PELVIS Status : Acute (4) Pleural effusion Code(s): J90 - PLEURAL EFFUSION, NOT ELSEWHERE CLASSIFIED Status: Acute - Plan Patient has progression of his disease. He does not have treatment options that would offer any benefit. Met with family today. They are close to making the decision for compassionate extubation. Will follow up.
--- NOTE | 2019-10-23 11:17 | PDOC.MOPN ---
Interval History: remains on ventilatory support, family at bedside - Vital Signs Vital Signs: Vital Signs (12 hours) Temp Pulse Resp BP Pulse Ox 10/23/19 10:39 100 102/55 L 10/23/19 10:00 22 H 10/23/19 08:00 22 H 10/23/19 07:54 112 H 93/51 L 10/23/19 06:00 22 H 10/23/19 04:00 99.2 F 22 H 10/23/19 02:20 111 H 117/62 10/23/19 02:00 22 H 10/23/19 01:18 98 10/23/19 00:00 99.2 F 22 H Weight Admit Weight 198 lb 10.2 oz Weight 188 lb 11.451 oz Most Recent Monitor Data Heart Rate from ECG 102 NIBP 96/56 NIBP BP-Mean 69 Respiration from ECG 22 SpO2 100 - Physical Exam General: No acute distress, Other HEENT: Atraumatic, PERRLA, EOMI, Mucous membr. moist/pink Lungs: Other Cardiovascular: Regular rate Extremities: No clubbing, No cyanosis, No edema, Normal pulses, No tenderness/ swelling Skin: No rashes, No breakdown, No significant lesion Neurological: Other (intubated) - Labs Result Diagrams: 10/22/19 03:30 10/22/19 03:30 Status: lab reviewed by me A/P - Problem (1) Metastatic renal cell carcinoma Current Visit: Yes Code(s): C64.9 - MALIGNANT NEOPLASM OF UNSP KIDNEY, EXCEPT RENAL PELVIS Status: Acute (2) Pleural effusion Current Visit: Yes Code(s): J90 - PLEURAL EFFUSION, NOT ELSEWHERE CLASSIFIED Status: Acute - Plan Plan: Grave diagnosis discussed with family. All questions answered. plan to extubate later today.
[2019-10-23 12:12] VITALS: TEMP 99.1
[2019-10-23] MEDS: Lorazepam 2 MG/ML VIAL SLOW IVP PRN ×2 (12:28→13:19)
[2019-10-23] MEDS: Morphine 2 MG/ML SYRINGE SLOW IVP PRN (13:19)
--- NOTE | 2019-10-23 14:59 | PQF ---
DATE: 10-23-19 ATTN: DR. GHULAM RODRIGUEZ Please exercise your independent, professional judgment in responding to the clarification form. Clinical indicators are provided on the bottom of this form for your review Please check appropriate box(s) to clarify if the following diagnosis has been ruled in or ruled out: SEPSIS [ ] Ruled in diagnosis [ ] Continue to treat [ ] Resolved [ x] Ruled out diagnosis [ ] Other diagnosis [ ] Unable to determine In addition, please specify: Present on Admission (POA): [ ] Yes [ ] No [ ] Unable to determine For continuity of documentation, please document condition throughout progress notes and discharge summary. Thank You. CLINICAL INDICATORS - SIGNS / SYMPTOMS / LABS / RESULTS AND LOCATION IN MR: H&P 10-13-19: ACUTE RESPIRATORY DISTRESS WITH HYPOXIA, HAS R SIDED PLEURAL EFFUSION, COULD HAVE OBSTRUCTIVE PNEUMONIA, SEPSIS, POSSIBLE POSTOBSTRUCTIVE PNEUMONIA WBC: 10-13-19: 18.7 10-14-19: 20.9 10-15-19: 18.7 10-17-19: 17.1 10-22-19: 12.7 BANDS: 10-14-19: 18% LACTIC ACID: 10-13-19: 2.4, 10-21-19: 3.3 PULSE: 10-17-19: 105, ER: 113, 112, 112 20: 113 10-20-19: 112 RR: ER: 30, 22, [address] RODRIGUEZ 10-22-19: ACUTE RESPIRATORY FAILURE WITH HYPOXIA, HYPONATREMIA, ACUTE METASTATIC RENAL CELL CARCINOMA, ACUTE PLEURAL EFFUSION , CONTINUING VENT SUPPORT RISK FACTORS / RESULTS AND LOCATION IN MR: H&P 10-13-19: ACUTE RESPIRATORY DISTRESS WITH HYPOXIA, HAS R SIDED PLEURAL EFFUSION, COULD HAVE OBSTRUCTIVE PNEUMONIA, SEPSIS, POSSIBLE POSTOBSTRUCTIVE PNEUMONIA TREATMENTS / RESULTS AND LOCATION IN MR: 10-13-19: MAGNESIUM IV, POTASSIUM IV ER NOTES 10-13-19: CEFTRIAXONE IV, NS IVF, AZITHROMYCIN IV (This form is maintained as a part of the permanent medical record) 2014 [employer]. All Rights Reserved [email or web address]
--- NOTE | 2019-10-24 04:08 | DIS ---
DATE OF ADMISSION: 10/13/2019 DATE OF DISCHARGE: 10/23/2019 DATE OF : 10/23/2019. DIAGNOSES: 1. Acute hypoxic respiratory failure. 2. Malignant pleural effusion. 3. Metastatic renal cell cancer. 4. Multiple metastases including to the lungs. 5. Syndrome of inappropriate antidiuretic hormone secretion. 6. Hyponatremia. 7. Lactic acidosis. HISTORY: This patient was a 44-year-old male, who had just recently been diagnosed with renal cell carcinoma approximately two weeks prior to admission. The patient had a workup including imaging, which revealed multiple metastases in a very large renal cell tumor. Biopsy confirmed renal cell carcinoma. The patient was working with Dr. Morris in order to obtain some resources in order to acquire chemotherapy; however, during that time, the patient had progression of his respiratory decline and ultimately had to present to the emergency department with shortness of breath. His workup revealed a very large pleural effusion, which was subsequently tapped by Pulmonology; however, had very rapid recurrence and ultimately required a PleurX catheter be placed. There was some difficulty in getting this to function properly, but the patient progressed in his respiratory decline further and ultimately required intubation. The patient unfortunately had no viable treatment options available to him per Oncology. Therefore, the family was called in and ultimately made the decision to compassionately extubate the patient. The patient subsequently with family present at 2:17 p.m. Job ID: [id number]
--- NOTE | 2019-10-24 06:48 | PQF ---
[employer] KARTHIK Gillis KARISHMA [id number] CLINICAL DOCUMENTATION CLARIFICATION FORM: POST DISCHARGE Addendum to original discharge summary date: ____ Late entry note date: __ DATE: 10/24/19 ATTN:Steve Carrillo Please exercise your independent, professional judgment in responding to the clarification form. Clinical indicators are provided on the bottom of this form for your review Diagnosis: Acute Hypoxic Respiratory Failure 10/23/19 Present on Admission (POA): [ x ] Yes [ ] No [ ] Unable to determine Coding guidelines require hospitals to identify whether a diagnosis was present on admission (POA) or not. To accurately assign the appropriate POA indicator, this information must be clearly documented within the medical record. CLINICAL INDICATORS - SIGNS / SYMPTOMS / LABS H and P pg.1- Shortness of breath H and P pg.2- Acute respiratory distress with hypoxia Palliative care pg.1- admitted for acute respiratory distress with hypoxia Event note pg.1- acidosis with hypoxia Oncology PN pg.2- ABG pCO2 59.1H, ABG pO2 91.9, O2 sat 95.8 Oncology PN pg.3- rapid progression of pleural effusion and respiratory failure despite intervention RISK FACTORS: Smokes a pack per day very 2-3 days- H and P pg.1 Metastatic renal cell carcinoma- H and P pg.1 Malignant Pleural Effusion- OP report pg.1 Metastasis to Lungs Hospitalist PN pg.4 TREATMENT: Blood gas monitoring- Laboratory Chest X ray 10/[address] Barrientos 10/14 O2 Supplementation Right PleurX cath Placement 10/14 pg.1 Intubation- Event Note (This form is maintained as a part of the permanent medical record) 2014 [employer]. All Rights Reserved [email or web address]
== END 2019-10-23 14:17 | disposition expired | DRG 208 ==
LOC: ERS 17:55 → CCU 19:50 → IMCU/EMU 10-14 16:15 → CCU 10-22 01:25
PROVIDERS: ADMIT Family Medicine; ATTEND Internal Medicine
PROC: 0W993ZZ Drainage of Right Pleural Cavity, Percutaneous Approach (ICD-10-PCS; 2019-10-14)
PROC: 0W9930Z Drainage of Right Pleural Cavity with Drainage Device, Percutaneous Approach (ICD-10-PCS; 2019-10-15)
PROC: 5A1935Z Respiratory Ventilation, Less than 24 Consecutive Hours (ICD-10-PCS; principal; 2019-10-22)
PROC: 5A09457 Assistance with Respiratory Ventilation, 24-96 Consecutive Hours, Continuous Positive Airway Pressure (ICD-10-PCS; 2019-10-22)
DX: J96.01 Acute respiratory failure with hypoxia (principal); C78.01 Secondary malignant neoplasm of right lung; C64.9 Malignant neoplasm of unspecified kidney, except renal pelvis; E87.2 Acidosis; C78.7 Secondary malignant neoplasm of liver and intrahepatic bile duct; J91.0 Malignant pleural effusion; E22.2 Syndrome of inappropriate secretion of antidiuretic hormone; C78.02 Secondary malignant neoplasm of left lung; Z66 Do not resuscitate; Z51.5 Encounter for palliative care; Z20.828 Contact with and (suspected) exposure to other viral communicable diseases; F10.10 Alcohol abuse, uncomplicated; Z87.891 Personal history of nicotine dependence
CPT/HCPCS: 36415; 36416; 71045; 80048; 80053; 82570; 82805; 82945; 83605; 83615; 83735; 83880; 83935; 84145; 84157; 84300; 84484; 85025; 85060; 87040; 87070; 87205; 87635; 88112; 88305; 89051; 93005; 94003; 94640; 94660; 94760; 96365; 96367; C1729; J0456; J0696; J1650; J1815; J2060; J2250; J2270; J2310; J2405; J2543; J2704; J3010; J3490; J7620; Q0162; S0020; U0003